=== PATIENT | female | born 1950 | race Caucasian/White ===

== ENCOUNTER 2016-09-01 15:37 | Emergency (ER) | payer MEDICARE, OTHER ==
[~2016-09-01] VITALS: Ht 160 cm; Wt 77.1 kg
[2016-09-01 15:37] VITALS: BP 175/99
[2016-09-01] MEDS ORDERED: TDAP [DIPH/PERTUSSIS/TET] 0.5 ML VIAL IM ONE ×2 (17:21→18:00)
== END 2016-09-01 17:47 | disposition home or self-care (01) ==
LOC: ER 15:38
DX: S80.02XA Contusion of left knee, initial encounter (principal); G40.909 Epilepsy, unspecified, not intractable, without status epilepticus; I10 Essential (primary) hypertension; M19.90 Unspecified osteoarthritis, unspecified site; Z96.652 Presence of left artificial knee joint; W18.30XA Fall on same level, unspecified, initial encounter; Y93.89 Activity, other specified; Y92.89 Other specified places as the place of occurrence of the external cause; Y99.8 Other external cause status
CPT/HCPCS: 73564; 90471; 90715; 99284; A4606; Z7610

== ENCOUNTER 2019-12-28 14:54 | Outpatient (CLI) | payer MEDICARE, OTHER ==
[2019-12-28 18:43] LABS: BASOPHILS % (AUTO) 0.3 % (0.0-2.0); EOSINOPHILS % (AUTO) 1.4 % (0.0-6.0); HEMATOCRIT 43 % (33-45); HEMOGLOBIN 14.4 g/dL (11.5-14.8); LYMPHOCYTES # (AUTO) 2.6 /CMM (0.8-4.8); MEAN CORPUSCULAR HGB CONC 34 g/dl (31.0-36.0); MEAN CORPUSCULAR VOLUME 88 fL (82-100); MONOCYTES # (AUTO) 0.7 /CMM (0.1-1.30); MONOCYTES % (AUTO) 8.9 % (2.0-12.0); NEUTROPHILS # (AUTO) 4.8 /CMM (1.8-8.9); NEUTROPHILS % (AUTO) 58.4 % (43.0-81.0); PLATELET COUNT (AUTO) 193 /CMM (150-450); RED BLOOD CELL COUNT(AUTO) 4.88 MIL/uL (4.0-5.2); WHITE BLOOD COUNT (AUTO) 8.2 K/uL (4.3-11.0)
[2019-12-28 18:50] LABS: ALBUMIN 3.6 g/dL (3.4-5.0); BILIRUBIN,TOTAL 0.1 mg/dL (0.2-1.0); CREATININE 0.7 mg/dL (0.6-1.3); POTASSIUM 3.7 mmol/L (3.5-5.1); TOTAL PROTEIN, SERUM 7.6 g/dL (6.4-8.2)
[2019-12-28 18:53] LABS: CARBAMAZEPINE (TEGRETOL) 6.8 ug/ml (4-11.9)
[2019-12-28 19:11] LABS: THYROID STIMULATING HORMONE 1.046 uIU/mL (0.358-3.74)
== END 2019-12-28 23:59 | disposition home or self-care (01) ==
LOC: MSC 14:54
PROVIDERS: ATTEND Internal Medicine
DX: I10 Essential (primary) hypertension (principal); M65.279 Calcific tendinitis, unspecified ankle and foot; F41.9 Anxiety disorder, unspecified; K62.5 Hemorrhage of anus and rectum; G40.309 Generalized idiopathic epilepsy and epileptic syndromes, not intractable, without status epilepticus; N39.0 Urinary tract infection, site not specified; M54.5 Low back pain; M15.9 Polyosteoarthritis, unspecified; E66.9 Obesity, unspecified; M85.80 Other specified disorders of bone density and structure, unspecified site; E78.5 Hyperlipidemia, unspecified; Z79.899 Other long term (current) drug therapy
CPT/HCPCS: 36415; 80053; 80156; 83735; 84100; 84443; 85025; G0463

== ENCOUNTER 2020-02-29 14:42 | Outpatient (CLI) | payer MEDICARE, OTHER | END 2020-02-29 23:59 | disposition home or self-care (01) | LOC: MSC 14:42 | PROVIDERS: ATTEND Internal Medicine | DX: M65.279 Calcific tendinitis, unspecified ankle and foot (principal); F41.9 Anxiety disorder, unspecified; I10 Essential (primary) hypertension; M15.9 Polyosteoarthritis, unspecified; M54.5 Low back pain; K62.5 Hemorrhage of anus and rectum; E66.9 Obesity, unspecified; Z68.33 Body mass index [BMI] 33.0-33.9, adult; E78.5 Hyperlipidemia, unspecified; E74.39 Other disorders of intestinal carbohydrate absorption; G40.309 Generalized idiopathic epilepsy and epileptic syndromes, not intractable, without status epilepticus; N39.0 Urinary tract infection, site not specified; M85.80 Other specified disorders of bone density and structure, unspecified site; Z79.899 Other long term (current) drug therapy ==

== ENCOUNTER 2020-06-13 14:54 | Outpatient (CLI) | payer MEDICARE, OTHER | END 2020-06-13 23:59 | disposition home or self-care (01) | LOC: MSC 14:54 | PROVIDERS: ATTEND Internal Medicine | DX: I10 Essential (primary) hypertension (principal); M65.279 Calcific tendinitis, unspecified ankle and foot; K62.5 Hemorrhage of anus and rectum; F41.9 Anxiety disorder, unspecified; M15.9 Polyosteoarthritis, unspecified; M54.5 Low back pain; E66.9 Obesity, unspecified; Z68.34 Body mass index [BMI] 34.0-34.9, adult; Z71.3 Dietary counseling and surveillance; E78.5 Hyperlipidemia, unspecified; E74.39 Other disorders of intestinal carbohydrate absorption; G40.309 Generalized idiopathic epilepsy and epileptic syndromes, not intractable, without status epilepticus; N39.0 Urinary tract infection, site not specified; M85.80 Other specified disorders of bone density and structure, unspecified site; Z79.899 Other long term (current) drug therapy; Z71.89 Other specified counseling ==

== ENCOUNTER 2020-08-08 14:42 | Outpatient (CLI) | payer MEDICARE, OTHER | END 2020-08-08 23:59 | disposition home or self-care (01) | LOC: MSC 14:42 | PROVIDERS: ATTEND Internal Medicine | DX: I10 Essential (primary) hypertension (principal); F41.9 Anxiety disorder, unspecified; G40.309 Generalized idiopathic epilepsy and epileptic syndromes, not intractable, without status epilepticus; M15.9 Polyosteoarthritis, unspecified; M54.5 Low back pain; K62.5 Hemorrhage of anus and rectum; E66.9 Obesity, unspecified; Z68.35 Body mass index [BMI] 35.0-35.9, adult; Z71.3 Dietary counseling and surveillance; M65.279 Calcific tendinitis, unspecified ankle and foot; E78.5 Hyperlipidemia, unspecified; E74.39 Other disorders of intestinal carbohydrate absorption; N39.0 Urinary tract infection, site not specified; M85.80 Other specified disorders of bone density and structure, unspecified site; Z79.899 Other long term (current) drug therapy ==

== ENCOUNTER 2020-11-18 09:35 | Outpatient (CLI) | payer MEDICARE, OTHER | END 2020-11-18 23:59 | disposition home or self-care (01) | LOC: MSC 09:35 | PROVIDERS: ATTEND Internal Medicine | DX: E66.9 Obesity, unspecified (principal); Z68.36 Body mass index [BMI] 36.0-36.9, adult; Z71.3 Dietary counseling and surveillance; I10 Essential (primary) hypertension; Z96.653 Presence of artificial knee joint, bilateral; M65.279 Calcific tendinitis, unspecified ankle and foot; M85.80 Other specified disorders of bone density and structure, unspecified site; F41.9 Anxiety disorder, unspecified; M15.9 Polyosteoarthritis, unspecified; M54.5 Low back pain; E78.5 Hyperlipidemia, unspecified; E74.39 Other disorders of intestinal carbohydrate absorption; G40.309 Generalized idiopathic epilepsy and epileptic syndromes, not intractable, without status epilepticus; Z86.69 Personal history of other diseases of the nervous system and sense organs; Z98.890 Other specified postprocedural states; Z87.440 Personal history of urinary (tract) infections; Z79.899 Other long term (current) drug therapy ==

== ENCOUNTER 2021-01-20 09:49 | Outpatient (CLI) | payer MEDICARE, OTHER | END 2021-01-20 23:59 | disposition home or self-care (01) | LOC: MSC 09:49 | PROVIDERS: ATTEND Internal Medicine | DX: I10 Essential (primary) hypertension (principal); Z68.36 Body mass index [BMI] 36.0-36.9, adult; Z71.3 Dietary counseling and surveillance; M85.80 Other specified disorders of bone density and structure, unspecified site; M65.279 Calcific tendinitis, unspecified ankle and foot; F41.9 Anxiety disorder, unspecified; M15.9 Polyosteoarthritis, unspecified; K62.5 Hemorrhage of anus and rectum; M54.50 Low back pain, unspecified; E66.9 Obesity, unspecified; E78.5 Hyperlipidemia, unspecified; E74.39 Other disorders of intestinal carbohydrate absorption; G40.309 Generalized idiopathic epilepsy and epileptic syndromes, not intractable, without status epilepticus; Z87.440 Personal history of urinary (tract) infections; Z79.899 Other long term (current) drug therapy ==

== ENCOUNTER 2021-01-22 10:10 | Outpatient (CLI) | payer MEDICARE, OTHER ==
[2021-01-22] MEDS ORDERED: LIDOCAINE SOLN 4% 50 ML BOTTLE ONE (10:45)
== END 2021-01-22 23:59 | disposition home or self-care (01) ==
LOC: WOU 10:10
PROVIDERS: ATTEND Podiatrist Foot & Ankle Surgery
DX: T81.31XA Disruption of external operation (surgical) wound, not elsewhere classified, initial encounter (principal); I10 Essential (primary) hypertension
CPT/HCPCS: 11042

== ENCOUNTER 2021-02-05 10:02 | Outpatient (CLI) | payer MEDICARE, OTHER ==
[2021-02-05] MEDS ORDERED: LIDOCAINE SOLN 4% 50 ML BOTTLE ONE (10:10)
== END 2021-02-05 23:59 | disposition home health service (06) ==
LOC: WOU 10:02
PROVIDERS: ATTEND Podiatrist Foot & Ankle Surgery
DX: T81.31XA Disruption of external operation (surgical) wound, not elsewhere classified, initial encounter (principal); I10 Essential (primary) hypertension; Z96.653 Presence of artificial knee joint, bilateral
CPT/HCPCS: 11042

== ENCOUNTER 2021-02-12 09:50 | Outpatient (CLI) | payer MEDICARE, OTHER ==
[2021-02-12] MEDS ORDERED: CLOTRIMAZOLE 1% 15 GM TUBE TP ONE (11:06)
[2021-02-12] MEDS ORDERED: TRIAMCINOLONE ACETONIDE 0.1% CR 15 GM TUBE TP ONE (11:06)
== END 2021-02-12 23:59 | disposition home health service (06) ==
LOC: WOU 09:50
PROVIDERS: ATTEND Podiatrist Foot & Ankle Surgery
DX: T81.31XA Disruption of external operation (surgical) wound, not elsewhere classified, initial encounter (principal); I10 Essential (primary) hypertension
CPT/HCPCS: 11042

== ENCOUNTER 2021-02-17 10:30 | Outpatient (CLI) | payer MEDICARE, OTHER | END 2021-02-17 23:59 | disposition home or self-care (01) | LOC: MSC 10:30 | PROVIDERS: ATTEND Internal Medicine | DX: E66.9 Obesity, unspecified (principal); Z71.3 Dietary counseling and surveillance; I10 Essential (primary) hypertension; M65.279 Calcific tendinitis, unspecified ankle and foot; F41.9 Anxiety disorder, unspecified; M15.9 Polyosteoarthritis, unspecified; M54.50 Low back pain, unspecified; K62.5 Hemorrhage of anus and rectum; E78.5 Hyperlipidemia, unspecified; E74.39 Other disorders of intestinal carbohydrate absorption; G40.309 Generalized idiopathic epilepsy and epileptic syndromes, not intractable, without status epilepticus; Z87.440 Personal history of urinary (tract) infections; M85.80 Other specified disorders of bone density and structure, unspecified site; Z79.899 Other long term (current) drug therapy ==

== ENCOUNTER → 2021-02-18 | Outpatient (CLI) | payer MEDICARE, OTHER ==
[~2021-02-18] MED LIST: CLOTRIMAZOLE 1% 15 GM TUBE TP ONE
== END | disposition home or self-care (01) ==
LOC: VASLAB 09:00
PROVIDERS: ATTEND Internal Medicine
DX: T81.30XD Disruption of wound, unspecified, subsequent encounter (principal); S91.301D Unspecified open wound, right foot, subsequent encounter; X58.XXXD Exposure to other specified factors, subsequent encounter; I87.2 Venous insufficiency (chronic) (peripheral); G40.909 Epilepsy, unspecified, not intractable, without status epilepticus; E78.5 Hyperlipidemia, unspecified; I10 Essential (primary) hypertension; R06.00 Dyspnea, unspecified
CPT/HCPCS: G0463

== ENCOUNTER 2021-02-19 09:50 | Outpatient (CLI) | payer MEDICARE, OTHER ==
[~2021-02-19 09:50] MED LIST changes: -CLOTRIMAZOLE 1% 15 GM TUBE TP ONE; +LIDOCAINE SOLN 4% 50 ML BOTTLE ONE
== END 2021-02-19 23:59 | disposition home health service (06) ==
LOC: WOU 09:50
PROVIDERS: ATTEND Podiatrist Foot & Ankle Surgery
DX: T81.31XA Disruption of external operation (surgical) wound, not elsewhere classified, initial encounter (principal); I10 Essential (primary) hypertension; F41.9 Anxiety disorder, unspecified
CPT/HCPCS: 11042

== ENCOUNTER 2021-02-24 11:30 | Outpatient (CLI) | payer MEDICARE, OTHER ==
[2021-02-24] MEDS ORDERED: GADOTERATE MEGLUMINE 10 MMOL/20 ML VIAL IV ONE (11:31)
== END 2021-02-24 23:59 | disposition home or self-care (01) ==
LOC: MRI 11:30
PROVIDERS: ATTEND Podiatrist Foot & Ankle Surgery
DX: S91.301A Unspecified open wound, right foot, initial encounter (principal); M19.071 Primary osteoarthritis, right ankle and foot; M20.11 Hallux valgus (acquired), right foot; M76.61 Achilles tendinitis, right leg; X58.XXXA Exposure to other specified factors, initial encounter; Y93.89 Activity, other specified; Y92.89 Other specified places as the place of occurrence of the external cause; Y99.8 Other external cause status
CPT/HCPCS: 73720; 73723; A9575

== ENCOUNTER 2021-02-26 10:06 | Outpatient (CLI) | payer MEDICARE, OTHER ==
[2021-02-26] MEDS ORDERED: LIDOCAINE SOLN 4% 50 ML BOTTLE ONE (10:21)
[2021-02-26] MEDS ORDERED: CLOTRIMAZOLE 1% 15 GM TUBE TP ONE (10:48)
[2021-02-26] MEDS ORDERED: TRIAMCINOLONE ACETONIDE 0.1% CR 15 GM TUBE TP ONE (10:48)
== END 2021-02-26 23:59 | disposition home health service (06) ==
LOC: WOU 10:06
PROVIDERS: ATTEND Podiatrist Foot & Ankle Surgery
DX: T81.31XA Disruption of external operation (surgical) wound, not elsewhere classified, initial encounter (principal); I10 Essential (primary) hypertension; F41.9 Anxiety disorder, unspecified
CPT/HCPCS: 11042

== ENCOUNTER 2021-03-03 09:49 | Outpatient (CLI) | payer MEDICARE, OTHER | END 2021-03-03 23:59 | disposition home or self-care (01) | LOC: MSC 09:49 | PROVIDERS: ATTEND Internal Medicine | DX: E66.9 Obesity, unspecified (principal); Z71.3 Dietary counseling and surveillance; I10 Essential (primary) hypertension; M65.279 Calcific tendinitis, unspecified ankle and foot; F41.9 Anxiety disorder, unspecified; M15.9 Polyosteoarthritis, unspecified; M54.50 Low back pain, unspecified; K62.5 Hemorrhage of anus and rectum; E78.5 Hyperlipidemia, unspecified; E74.39 Other disorders of intestinal carbohydrate absorption; G40.309 Generalized idiopathic epilepsy and epileptic syndromes, not intractable, without status epilepticus; N39.0 Urinary tract infection, site not specified; M85.80 Other specified disorders of bone density and structure, unspecified site; Z79.899 Other long term (current) drug therapy ==

== ENCOUNTER 2021-03-05 09:50 | Outpatient (CLI) | payer MEDICARE, OTHER ==
[2021-03-05] MEDS ORDERED: LIDOCAINE SOLN 4% 50 ML BOTTLE ONE (10:10)
[2021-03-05] MEDS ORDERED: CLOTRIMAZOLE 1% 15 GM TUBE TP ONE (10:28)
[2021-03-05] MEDS ORDERED: TRIAMCINOLONE ACETONIDE 0.1% CR 15 GM TUBE TP ONE (10:28)
== END 2021-03-05 23:59 | disposition home health service (06) ==
LOC: WOU 09:50
PROVIDERS: ATTEND Podiatrist Foot & Ankle Surgery
DX: T81.31XS Disruption of external operation (surgical) wound, not elsewhere classified, sequela (principal); L97.312 Non-pressure chronic ulcer of right ankle with fat layer exposed
CPT/HCPCS: 11042

== ENCOUNTER 2021-03-19 09:50 | Outpatient (CLI) | payer MEDICARE, OTHER | END 2021-03-19 23:59 | disposition home health service (06) | LOC: WOU 09:50 | PROVIDERS: ATTEND Podiatrist Foot & Ankle Surgery | DX: T81.31XS Disruption of external operation (surgical) wound, not elsewhere classified, sequela (principal); L97.312 Non-pressure chronic ulcer of right ankle with fat layer exposed | CPT/HCPCS: 11042; A6197 ==

== ENCOUNTER → 2021-03-26 | Outpatient (CLI) | payer MEDICARE, OTHER | END | disposition home health service (06) | LOC: WOU 10:05 | PROVIDERS: ATTEND Podiatrist Foot & Ankle Surgery | DX: T81.31XS Disruption of external operation (surgical) wound, not elsewhere classified, sequela (principal); L97.312 Non-pressure chronic ulcer of right ankle with fat layer exposed; I10 Essential (primary) hypertension; Z96.653 Presence of artificial knee joint, bilateral | CPT/HCPCS: 11042 ==

== ENCOUNTER → 2021-03-31 | Outpatient (CLI) | payer MEDICARE, OTHER | END | disposition home or self-care (01) | LOC: MSC 09:06 | PROVIDERS: ATTEND Internal Medicine | DX: R48.8 Other symbolic dysfunctions (principal); E66.9 Obesity, unspecified; Z68.34 Body mass index [BMI] 34.0-34.9, adult; Z71.3 Dietary counseling and surveillance; I10 Essential (primary) hypertension; M65.279 Calcific tendinitis, unspecified ankle and foot; F41.9 Anxiety disorder, unspecified; M15.9 Polyosteoarthritis, unspecified; M54.50 Low back pain, unspecified; K62.5 Hemorrhage of anus and rectum; E78.5 Hyperlipidemia, unspecified; E74.39 Other disorders of intestinal carbohydrate absorption; G40.309 Generalized idiopathic epilepsy and epileptic syndromes, not intractable, without status epilepticus; N39.0 Urinary tract infection, site not specified; M85.80 Other specified disorders of bone density and structure, unspecified site; Z79.899 Other long term (current) drug therapy ==

== ENCOUNTER 2021-04-02 10:10 | Outpatient (CLI) | payer MEDICARE, OTHER | END 2021-04-02 23:59 | disposition home health service (06) | LOC: WOU 10:10 | PROVIDERS: ATTEND Podiatrist Foot & Ankle Surgery | DX: T81.31XS Disruption of external operation (surgical) wound, not elsewhere classified, sequela (principal); L97.315 Non-pressure chronic ulcer of right ankle with muscle involvement without evidence of necrosis; I10 Essential (primary) hypertension | CPT/HCPCS: 11043; A6210 ==

== ENCOUNTER 2021-04-06 09:36 | Outpatient (CLI) | payer MEDICARE, OTHER ==
[2021-04-06 10:33] LABS: BASOPHILS % (AUTO) 0.5 % (0.0-2.0); EOSINOPHILS % (AUTO) 1.1 % (0.0-6.0); HEMATOCRIT 42 % (33-45); HEMOGLOBIN 14.4 g/dL (11.5-14.8); LYMPHOCYTES # (AUTO) 2.1 K/uL (0.8-4.8); LYMPHOCYTES % (AUTO) 28.9 % (20.0-44.0); MEAN CORPUSCULAR HGB CONC 34 g/dl (31.0-36.0); MEAN CORPUSCULAR VOLUME 85 fL (82-100); MONOCYTES # (AUTO) 0.6 K/uL (0.1-1.30); MONOCYTES % (AUTO) 7.6 % (2.0-12.0); NEUTROPHILS # (AUTO) 4.6 K/uL (1.8-8.9); NEUTROPHILS % (AUTO) 61.9 % (43.0-81.0); PLATELET COUNT (AUTO) 184 K/uL (150-450); RED BLOOD CELL COUNT(AUTO) 4.97 MIL/uL (4.0-5.2); WHITE BLOOD COUNT (AUTO) 7.4 K/uL (4.3-11.0)
[2021-04-06 11:14] LABS: ALBUMIN 3.4 g/dL (3.4-5.0); BILIRUBIN,TOTAL 0.5 mg/dL (0.2-1.0); CALCIUM, SERUM 8.8 mg/dL (8.5-10.1); CREATININE 0.9 mg/dL (0.6-1.3); MAGNESIUM 1.9 mg/dL (1.8-2.4); PHOSPHORUS 3.2 mg/dL (2.5-4.9); POTASSIUM 3.8 mmol/L (3.5-5.1); TOTAL PROTEIN, SERUM 7.1 g/dL (6.4-8.2)
[2021-04-06 11:36] LABS: C-REACTIVE PROTEIN 0.7 mg/dL (0.0-0.9); THYROID STIMULATING HORMONE 0.785 uIU/mL (0.358-3.74)
[2021-04-06 11:48] LABS: CARBAMAZEPINE (TEGRETOL) 4.5 ug/ml (4-11.9)
== END 2021-04-06 23:59 | disposition home or self-care (01) ==
LOC: LAB 09:36
PROVIDERS: ATTEND Internal Medicine
DX: I10 Essential (primary) hypertension (principal); E66.9 Obesity, unspecified
CPT/HCPCS: 36415; 80053-TC; 80156-TC; 82140-TC; 82607-TC; 83735-TC; 84100-TC; 84439-TC; 84443-TC; 85025-TC; 85652-TC; 86140-TC

== ENCOUNTER 2021-04-09 10:10 | Outpatient (CLI) | payer MEDICARE, OTHER | END 2021-04-09 23:59 | disposition home health service (06) | LOC: WOU 10:10 | PROVIDERS: ATTEND Podiatrist Foot & Ankle Surgery | DX: T81.31XS Disruption of external operation (surgical) wound, not elsewhere classified, sequela (principal); L97.312 Non-pressure chronic ulcer of right ankle with fat layer exposed | CPT/HCPCS: 11042 ==

== ENCOUNTER 2021-04-09 11:45 | Outpatient (CLI) | payer MEDICARE, OTHER | END 2021-04-09 23:59 | disposition home or self-care (01) | LOC: MSC 11:45 | PROVIDERS: ATTEND Internal Medicine | DX: Z51.89 Encounter for other specified aftercare (principal); E66.9 Obesity, unspecified; I10 Essential (primary) hypertension; F41.9 Anxiety disorder, unspecified; M65.279 Calcific tendinitis, unspecified ankle and foot; M15.9 Polyosteoarthritis, unspecified; M54.50 Low back pain, unspecified; K62.5 Hemorrhage of anus and rectum; E78.5 Hyperlipidemia, unspecified; E74.39 Other disorders of intestinal carbohydrate absorption; G40.309 Generalized idiopathic epilepsy and epileptic syndromes, not intractable, without status epilepticus; N39.0 Urinary tract infection, site not specified; M85.80 Other specified disorders of bone density and structure, unspecified site; Z79.899 Other long term (current) drug therapy ==

== ENCOUNTER 2021-04-16 10:00 | Outpatient (CLI) | payer MEDICARE, OTHER | END 2021-04-16 23:59 | disposition home health service (06) | LOC: WOU 10:00 | PROVIDERS: ATTEND Podiatrist Foot & Ankle Surgery | DX: T81.31XS Disruption of external operation (surgical) wound, not elsewhere classified, sequela (principal); L97.312 Non-pressure chronic ulcer of right ankle with fat layer exposed; I10 Essential (primary) hypertension | CPT/HCPCS: 11042 ==

== ENCOUNTER 2021-04-23 09:50 | Outpatient (CLI) | payer MEDICARE, OTHER ==
[~2021-04-23 09:50] MED LIST changes: +LIDOCAINE 2% JEL 5 ML TUBE ONE; -LIDOCAINE SOLN 4% 50 ML BOTTLE ONE
== END 2021-04-23 23:59 | disposition home health service (06) ==
LOC: WOU 09:50
PROVIDERS: ATTEND Podiatrist Foot & Ankle Surgery
DX: T81.31XS Disruption of external operation (surgical) wound, not elsewhere classified, sequela (principal); L97.312 Non-pressure chronic ulcer of right ankle with fat layer exposed; I10 Essential (primary) hypertension
CPT/HCPCS: 11042

== ENCOUNTER 2021-04-30 09:50 | Outpatient (CLI) | payer MEDICARE, OTHER | END 2021-04-30 23:59 | disposition home health service (06) | LOC: WOU 09:50 | PROVIDERS: ATTEND Podiatrist Foot & Ankle Surgery | DX: T81.31XS Disruption of external operation (surgical) wound, not elsewhere classified, sequela (principal); L97.312 Non-pressure chronic ulcer of right ankle with fat layer exposed; I10 Essential (primary) hypertension | CPT/HCPCS: 15271; Q4196 ==

== ENCOUNTER 2021-05-07 10:00 | Outpatient (CLI) | payer MEDICARE, OTHER ==
[2021-05-07] MEDS ORDERED: HYDROCORTISONE 1% CREAM 28.35 GM TUBE TP ONE (10:37)
== END 2021-05-07 23:59 | disposition home health service (06) ==
LOC: WOU 10:00
PROVIDERS: ATTEND Podiatrist Foot & Ankle Surgery
DX: T81.31XS Disruption of external operation (surgical) wound, not elsewhere classified, sequela (principal); L97.312 Non-pressure chronic ulcer of right ankle with fat layer exposed; I10 Essential (primary) hypertension
CPT/HCPCS: 11042

== ENCOUNTER 2021-05-12 10:10 | Outpatient (CLI) | payer MEDICARE, OTHER | END 2021-05-12 23:59 | disposition home or self-care (01) | LOC: MSC 10:10 | PROVIDERS: ATTEND Internal Medicine | DX: E66.9 Obesity, unspecified (principal); Z68.34 Body mass index [BMI] 34.0-34.9, adult; Z71.3 Dietary counseling and surveillance; Z79.84 Long term (current) use of oral hypoglycemic drugs; I10 Essential (primary) hypertension; M65.279 Calcific tendinitis, unspecified ankle and foot; F41.9 Anxiety disorder, unspecified; M15.9 Polyosteoarthritis, unspecified; M54.50 Low back pain, unspecified; K62.5 Hemorrhage of anus and rectum; E78.5 Hyperlipidemia, unspecified; E74.39 Other disorders of intestinal carbohydrate absorption; G40.309 Generalized idiopathic epilepsy and epileptic syndromes, not intractable, without status epilepticus; N39.0 Urinary tract infection, site not specified; M85.80 Other specified disorders of bone density and structure, unspecified site; Z79.899 Other long term (current) drug therapy ==

== ENCOUNTER 2021-05-21 09:45 | Outpatient (CLI) | payer MEDICARE, OTHER ==
[2021-05-21] MEDS ORDERED: HYDROCORTISONE 1% CREAM 28.35 GM TUBE TP ONE (10:36)
== END 2021-05-21 23:59 | disposition home health service (06) ==
LOC: WOU 09:45
PROVIDERS: ATTEND Podiatrist Foot & Ankle Surgery
DX: L97.312 Non-pressure chronic ulcer of right ankle with fat layer exposed (principal); T81.31XS Disruption of external operation (surgical) wound, not elsewhere classified, sequela; I10 Essential (primary) hypertension
CPT/HCPCS: 15271; Q4133 ×2

== ENCOUNTER 2021-05-28 09:55 | Outpatient (CLI) | payer MEDICARE, OTHER | END 2021-05-28 23:59 | disposition home health service (06) | LOC: WOU 09:55 | PROVIDERS: ATTEND Podiatrist Foot & Ankle Surgery | DX: L97.312 Non-pressure chronic ulcer of right ankle with fat layer exposed (principal); T81.31XS Disruption of external operation (surgical) wound, not elsewhere classified, sequela | CPT/HCPCS: 11042; A6197 ==

== ENCOUNTER 2021-06-04 09:55 | Outpatient (CLI) | payer MEDICARE, OTHER ==
[2021-06-04] MEDS ORDERED: LIDOCAINE SOLN 4% 50 ML BOTTLE ONE (10:14)
== END 2021-06-04 23:59 | disposition home health service (06) ==
LOC: WOU 09:55
PROVIDERS: ATTEND Podiatrist Foot & Ankle Surgery
DX: L97.312 Non-pressure chronic ulcer of right ankle with fat layer exposed (principal); T81.31XS Disruption of external operation (surgical) wound, not elsewhere classified, sequela
CPT/HCPCS: 15271; Q4158 ×2

== ENCOUNTER 2021-06-09 10:00 | Outpatient (CLI) | payer MEDICARE, OTHER | END 2021-06-09 23:59 | disposition home or self-care (01) | LOC: MSC 10:00 | PROVIDERS: ATTEND Internal Medicine | DX: K21.9 Gastro-esophageal reflux disease without esophagitis (principal); E66.9 Obesity, unspecified; Z71.3 Dietary counseling and surveillance; I10 Essential (primary) hypertension; M65.279 Calcific tendinitis, unspecified ankle and foot; F41.9 Anxiety disorder, unspecified; M15.9 Polyosteoarthritis, unspecified; M54.50 Low back pain, unspecified; K62.5 Hemorrhage of anus and rectum; E78.5 Hyperlipidemia, unspecified; E74.39 Other disorders of intestinal carbohydrate absorption; G40.309 Generalized idiopathic epilepsy and epileptic syndromes, not intractable, without status epilepticus; Z87.440 Personal history of urinary (tract) infections; M85.80 Other specified disorders of bone density and structure, unspecified site ==

== ENCOUNTER → 2021-06-11 | Outpatient (CLI) | payer MEDICARE, OTHER ==
[~2021-06-11] MED LIST changes: +HYDROCORTISONE 1% CREAM 28.35 GM TUBE TP ONE; -LIDOCAINE 2% JEL 5 ML TUBE ONE; +LIDOCAINE SOLN 4% 50 ML BOTTLE ONE
== END | disposition home health service (06) ==
LOC: WOU 10:00
PROVIDERS: ATTEND Podiatrist Foot & Ankle Surgery
DX: L97.312 Non-pressure chronic ulcer of right ankle with fat layer exposed (principal); T81.31XS Disruption of external operation (surgical) wound, not elsewhere classified, sequela; I10 Essential (primary) hypertension
CPT/HCPCS: 11042; A6197

== ENCOUNTER 2021-06-18 09:50 | Outpatient (CLI) | payer MEDICARE, OTHER | END 2021-06-18 23:59 | disposition home health service (06) | LOC: WOU 09:50 | PROVIDERS: ATTEND Podiatrist Foot & Ankle Surgery | DX: L97.312 Non-pressure chronic ulcer of right ankle with fat layer exposed (principal); T81.31XS Disruption of external operation (surgical) wound, not elsewhere classified, sequela; I10 Essential (primary) hypertension | CPT/HCPCS: 11042; A6197 ==

== ENCOUNTER 2021-06-25 09:50 | Outpatient (CLI) | payer MEDICARE, OTHER ==
[2021-06-25] MEDS ORDERED: UREA 10% -AHA 4% CREAM 57 GM TUBE ONE (10:36)
== END 2021-06-25 23:59 | disposition home health service (06) ==
LOC: WOU 09:50
PROVIDERS: ATTEND Podiatrist Foot & Ankle Surgery
DX: L97.312 Non-pressure chronic ulcer of right ankle with fat layer exposed (principal); T81.31XS Disruption of external operation (surgical) wound, not elsewhere classified, sequela; I10 Essential (primary) hypertension
CPT/HCPCS: 11042

== ENCOUNTER 2021-07-02 09:50 | Outpatient (CLI) | payer MEDICARE, OTHER ==
[2021-07-02] MEDS ORDERED: LIDOCAINE 2% JEL 5 ML TUBE ONE (09:56)
== END 2021-07-02 23:59 | disposition home health service (06) ==
LOC: WOU 09:50
PROVIDERS: ATTEND Podiatrist Foot & Ankle Surgery
DX: L97.312 Non-pressure chronic ulcer of right ankle with fat layer exposed (principal); T81.31XS Disruption of external operation (surgical) wound, not elsewhere classified, sequela
CPT/HCPCS: 11042

== ENCOUNTER → 2021-07-07 | Outpatient (CLI) | payer MEDICARE, OTHER | END | disposition home or self-care (01) | LOC: MSC 14:30 | PROVIDERS: ATTEND Internal Medicine | DX: Z51.89 Encounter for other specified aftercare (principal); K21.9 Gastro-esophageal reflux disease without esophagitis; E66.9 Obesity, unspecified; Z71.3 Dietary counseling and surveillance; Z79.899 Other long term (current) drug therapy; M65.279 Calcific tendinitis, unspecified ankle and foot; I10 Essential (primary) hypertension; F41.9 Anxiety disorder, unspecified; M15.9 Polyosteoarthritis, unspecified; M54.50 Low back pain, unspecified; K62.5 Hemorrhage of anus and rectum; E78.5 Hyperlipidemia, unspecified; E74.39 Other disorders of intestinal carbohydrate absorption; G40.309 Generalized idiopathic epilepsy and epileptic syndromes, not intractable, without status epilepticus; Z87.440 Personal history of urinary (tract) infections; M85.80 Other specified disorders of bone density and structure, unspecified site ==

== ENCOUNTER 2021-07-09 10:00 | Outpatient (CLI) | payer MEDICARE, OTHER ==
[2021-07-09] MEDS ORDERED: LIDOCAINE 2% JEL 5 ML TUBE ONE (10:11)
== END 2021-07-09 23:59 | disposition home health service (06) ==
LOC: WOU 10:00
PROVIDERS: ATTEND Podiatrist Foot & Ankle Surgery
DX: L97.312 Non-pressure chronic ulcer of right ankle with fat layer exposed (principal); T81.31XS Disruption of external operation (surgical) wound, not elsewhere classified, sequela; Z96.653 Presence of artificial knee joint, bilateral
CPT/HCPCS: 11042; A6197

== ENCOUNTER → 2021-07-16 | Outpatient (CLI) | payer MEDICARE, OTHER | END | disposition home health service (06) | LOC: WOU 09:50 | PROVIDERS: ATTEND Podiatrist Foot & Ankle Surgery | DX: L97.312 Non-pressure chronic ulcer of right ankle with fat layer exposed (principal); T81.31XS Disruption of external operation (surgical) wound, not elsewhere classified, sequela; Z96.653 Presence of artificial knee joint, bilateral | CPT/HCPCS: 11042; A6197 ==

== ENCOUNTER 2021-07-23 10:10 | Outpatient (CLI) | payer MEDICARE, OTHER ==
[~2021-07-23 10:10] MED LIST changes: -HYDROCORTISONE 1% CREAM 28.35 GM TUBE TP ONE; +LIDOCAINE 2% JEL 5 ML TUBE ONE; -LIDOCAINE SOLN 4% 50 ML BOTTLE ONE
[2021-07-23] MEDS ORDERED: LIDOCAINE HCL/MPF 1% 30 ML VIAL IJ ONE (10:40)
== END 2021-07-23 23:59 | disposition home health service (06) ==
LOC: WOU 10:10
PROVIDERS: ATTEND Podiatrist Foot & Ankle Surgery
DX: L97.312 Non-pressure chronic ulcer of right ankle with fat layer exposed (principal); T81.31XS Disruption of external operation (surgical) wound, not elsewhere classified, sequela; I10 Essential (primary) hypertension; Z96.653 Presence of artificial knee joint, bilateral
CPT/HCPCS: 13160; J3490

== ENCOUNTER 2021-07-29 14:26 | Emergency (ER) | payer MEDICARE, OTHER ==
[~2021-07-29] VITALS: Ht 160 cm; Wt 86.9 kg
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
--- NOTE | 2021-07-29 15:22 | NUR ---
WHEELED OUT VIA [facility] FOR CT SCAN
[2021-07-29] MEDS ORDERED: CYCLOBENZAPRINE 10 MG TABLET PO ONE (15:30)
[2021-07-29] MEDS ORDERED: KETOROLAC TROMETHAMINE INJ 30 MG/ML VIAL IM ONE (15:30)
[2021-07-29] MEDS ORDERED: CYCLOBENZAPRINE 10 MG TABLET ONE (15:35)
[2021-07-29] MEDS ORDERED: KETOROLAC TROMETHAMINE INJ 30 MG/ML VIAL ONE (15:35)
[2021-07-29] MEDS ORDERED: CYCL5TAB PO ×2 (16:52→18:07)
[2021-07-29] MEDS ORDERED: IBUP-1957 PO ×2 (16:52→18:07)
--- NOTE | 2021-07-29 17:12 | NUR ---
Patient discharged to home in stable condition. Written and verbal after care instructions given. Patient verbalizes understanding of instruction.
[2021-07-29 17:13] VITALS: BP 136/83
== END 2021-07-29 17:13 | disposition home or self-care (01) ==
LOC: ER 14:29
DX: S13.9XXA Sprain of joints and ligaments of unspecified parts of neck, initial encounter (principal); S39.012A Strain of muscle, fascia and tendon of lower back, initial encounter; I10 Essential (primary) hypertension; M19.90 Unspecified osteoarthritis, unspecified site; Z86.69 Personal history of other diseases of the nervous system and sense organs; Z96.652 Presence of left artificial knee joint; Z60.2 Problems related to living alone; Z79.1 Long term (current) use of non-steroidal anti-inflammatories (NSAID); Z79.899 Other long term (current) drug therapy; W10.0XXA Fall (on)(from) escalator, initial encounter; Y93.89 Activity, other specified; Y92.89 Other specified places as the place of occurrence of the external cause; Y99.8 Other external cause status
CPT/HCPCS: 70450; 72125; 72131; 96372; 99284; J1885

== ENCOUNTER 2021-07-30 10:00 | Outpatient (CLI) | payer MEDICARE, OTHER ==
[~2021-07-30 10:00] MED LIST changes: +CYCL5TAB PO; +IBUP-1957 PO; -LIDOCAINE 2% JEL 5 ML TUBE ONE
[2021-07-30] MEDS ORDERED: LIDOCAINE SOLN 4% 50 ML BOTTLE ONE (10:27)
[2021-07-30] MEDS ORDERED: HYDROCORTISONE 1% CREAM 28.35 GM TUBE TP ONE (10:43)
== END 2021-07-30 23:59 | disposition home health service (06) ==
LOC: WOU 10:00
PROVIDERS: ATTEND Podiatrist Foot & Ankle Surgery
DX: L97.312 Non-pressure chronic ulcer of right ankle with fat layer exposed (principal); T81.31XS Disruption of external operation (surgical) wound, not elsewhere classified, sequela
CPT/HCPCS: 11042

== ENCOUNTER 2021-08-06 10:04 | Outpatient (CLI) | payer MEDICARE, OTHER ==
[2021-08-06] MEDS ORDERED: LIDOCAINE 2% JEL 5 ML TUBE ONE (10:09)
[2021-08-06] MEDS ORDERED: HYDROCORTISONE 1% CREAM 28.35 GM TUBE TP ONE (11:01)
== END 2021-08-06 23:59 | disposition home health service (06) ==
LOC: WOU 10:04
PROVIDERS: ATTEND Podiatrist Foot & Ankle Surgery
DX: L97.312 Non-pressure chronic ulcer of right ankle with fat layer exposed (principal); T81.31XS Disruption of external operation (surgical) wound, not elsewhere classified, sequela; I10 Essential (primary) hypertension; Z96.653 Presence of artificial knee joint, bilateral
CPT/HCPCS: 11042

== ENCOUNTER 2021-08-11 10:05 | Outpatient (CLI) | payer MEDICARE, OTHER | END 2021-08-11 23:59 | disposition home or self-care (01) | LOC: MSC 10:05 | PROVIDERS: ATTEND Internal Medicine | DX: S39.012A Strain of muscle, fascia and tendon of lower back, initial encounter (principal); W10.0XXA Fall (on)(from) escalator, initial encounter; K21.9 Gastro-esophageal reflux disease without esophagitis; E66.9 Obesity, unspecified; Z68.33 Body mass index [BMI] 33.0-33.9, adult; Z71.3 Dietary counseling and surveillance; I10 Essential (primary) hypertension; M65.279 Calcific tendinitis, unspecified ankle and foot; F41.9 Anxiety disorder, unspecified; M15.9 Polyosteoarthritis, unspecified; E78.5 Hyperlipidemia, unspecified; E74.39 Other disorders of intestinal carbohydrate absorption; G40.309 Generalized idiopathic epilepsy and epileptic syndromes, not intractable, without status epilepticus; Z87.440 Personal history of urinary (tract) infections; M85.80 Other specified disorders of bone density and structure, unspecified site; Z79.899 Other long term (current) drug therapy ==

== ENCOUNTER 2021-08-13 09:50 | Outpatient (CLI) | payer MEDICARE, OTHER ==
[2021-08-13] MEDS ORDERED: HYDROCORTISONE 1% CREAM 28.35 GM TUBE TP ONE (10:27)
== END 2021-08-13 23:59 | disposition home health service (06) ==
LOC: WOU 09:50
PROVIDERS: ATTEND Podiatrist Foot & Ankle Surgery
DX: L97.312 Non-pressure chronic ulcer of right ankle with fat layer exposed (principal); T81.31XS Disruption of external operation (surgical) wound, not elsewhere classified, sequela; I10 Essential (primary) hypertension
CPT/HCPCS: 11042

== ENCOUNTER 2021-08-20 10:00 | Outpatient (CLI) | payer MEDICARE, OTHER ==
[2021-08-20] MEDS ORDERED: LIDOCAINE SOLN 4% 50 ML BOTTLE ONE (10:07)
== END 2021-08-20 23:59 | disposition home health service (06) ==
LOC: WOU 10:00
PROVIDERS: ATTEND Podiatrist Foot & Ankle Surgery
DX: L97.312 Non-pressure chronic ulcer of right ankle with fat layer exposed (principal); T81.31XS Disruption of external operation (surgical) wound, not elsewhere classified, sequela; I10 Essential (primary) hypertension; Z96.653 Presence of artificial knee joint, bilateral
CPT/HCPCS: 11042

== ENCOUNTER 2021-08-27 09:50 | Outpatient (CLI) | payer MEDICARE, OTHER ==
[2021-08-27] MEDS ORDERED: HYDROCORTISONE 1% CREAM 28.35 GM TUBE TP ONE (10:33)
== END 2021-08-27 23:59 | disposition home health service (06) ==
LOC: WOU 09:50
PROVIDERS: ATTEND Podiatrist Foot & Ankle Surgery
DX: L97.312 Non-pressure chronic ulcer of right ankle with fat layer exposed (principal); T81.31XS Disruption of external operation (surgical) wound, not elsewhere classified, sequela; I10 Essential (primary) hypertension
CPT/HCPCS: 11042; 87070-TC; 87075-TC

== ENCOUNTER 2021-09-03 09:50 | Outpatient (CLI) | payer MEDICARE, OTHER ==
[2021-09-03] MEDS ORDERED: MUPIROCIN 2% CREAM 15 GM TUBE TP ONE (11:22)
== END 2021-09-03 23:59 | disposition home health service (06) ==
LOC: WOU 09:50
PROVIDERS: ATTEND Podiatrist Foot & Ankle Surgery
DX: L97.315 Non-pressure chronic ulcer of right ankle with muscle involvement without evidence of necrosis (principal); T81.31XS Disruption of external operation (surgical) wound, not elsewhere classified, sequela; I10 Essential (primary) hypertension
CPT/HCPCS: 11043

== ENCOUNTER 2021-09-10 09:50 | Outpatient (CLI) | payer MEDICARE, OTHER ==
[2021-09-10] MEDS ORDERED: MUPIROCIN 2% CREAM 15 GM TUBE TP ONE (10:33)
[2021-09-10] MEDS ORDERED: HYDROCORTISONE 1% CREAM 28.35 GM TUBE TP ONE (10:34)
== END 2021-09-10 23:59 | disposition home health service (06) ==
LOC: WOU 09:50
PROVIDERS: ATTEND Podiatrist Foot & Ankle Surgery
DX: L97.315 Non-pressure chronic ulcer of right ankle with muscle involvement without evidence of necrosis (principal); T81.31XS Disruption of external operation (surgical) wound, not elsewhere classified, sequela
CPT/HCPCS: 11043

== ENCOUNTER → 2021-09-17 | Outpatient (CLI) | payer MEDICARE, OTHER ==
[~2021-09-17] MED LIST changes: +LIDOCAINE 2% 20 ML MDV ONE
== END | disposition home health service (06) ==
LOC: WOU 09:55
PROVIDERS: ATTEND Podiatrist Foot & Ankle Surgery
DX: L97.315 Non-pressure chronic ulcer of right ankle with muscle involvement without evidence of necrosis (principal); T81.31XS Disruption of external operation (surgical) wound, not elsewhere classified, sequela
CPT/HCPCS: 11043; J3490

== ENCOUNTER 2021-09-21 09:02 | Outpatient (CLI) | payer MEDICARE, OTHER ==
[~2021-09-21 09:02] MED LIST changes: -LIDOCAINE 2% 20 ML MDV ONE
[2021-09-21] MEDS ORDERED: LIDOCAINE SOLN 4% 50 ML BOTTLE ONE (09:09)
[2021-09-21] MEDS ORDERED: HYDROCORTISONE 1% CREAM 28.35 GM TUBE TP ONE (09:49)
== END 2021-09-21 23:59 | disposition home health service (06) ==
LOC: WOU 09:02
PROVIDERS: ATTEND Podiatrist Foot & Ankle Surgery
DX: L97.318 Non-pressure chronic ulcer of right ankle with other specified severity (principal); T81.31XS Disruption of external operation (surgical) wound, not elsewhere classified, sequela; I10 Essential (primary) hypertension
CPT/HCPCS: G0463

== ENCOUNTER 2021-09-24 10:00 | Outpatient (CLI) | payer MEDICARE, OTHER | END 2021-09-24 23:59 | disposition home health service (06) | LOC: WOU 10:00 | PROVIDERS: ATTEND Podiatrist Foot & Ankle Surgery | DX: L97.318 Non-pressure chronic ulcer of right ankle with other specified severity (principal); T81.31XS Disruption of external operation (surgical) wound, not elsewhere classified, sequela; I10 Essential (primary) hypertension | CPT/HCPCS: G0463 ==

== ENCOUNTER 2021-09-28 08:45 | Outpatient (CLI) | payer MEDICARE, OTHER | END 2021-09-28 23:59 | disposition home health service (06) | LOC: WOU 08:45 | PROVIDERS: ATTEND Podiatrist Foot & Ankle Surgery | DX: L97.318 Non-pressure chronic ulcer of right ankle with other specified severity (principal); T81.31XS Disruption of external operation (surgical) wound, not elsewhere classified, sequela; I10 Essential (primary) hypertension | CPT/HCPCS: G0463 ==

== ENCOUNTER 2021-10-08 09:30 | Outpatient (CLI) | payer MEDICARE, OTHER | END 2021-10-08 23:59 | disposition home health service (06) | LOC: WOU 09:30 | PROVIDERS: ATTEND Podiatrist Foot & Ankle Surgery | DX: L97.312 Non-pressure chronic ulcer of right ankle with fat layer exposed (principal); T81.31XS Disruption of external operation (surgical) wound, not elsewhere classified, sequela; I10 Essential (primary) hypertension | CPT/HCPCS: 11043 ==

== ENCOUNTER 2021-10-15 10:15 | Outpatient (CLI) | payer MEDICARE, OTHER ==
[2021-10-15] MEDS ORDERED: HYDROCORTISONE 1% CREAM 28.35 GM TUBE TP ONE (10:53)
== END 2021-10-15 23:59 | disposition home health service (06) ==
LOC: WOU 10:15
PROVIDERS: ATTEND Podiatrist Foot & Ankle Surgery
DX: L97.312 Non-pressure chronic ulcer of right ankle with fat layer exposed (principal); T81.31XS Disruption of external operation (surgical) wound, not elsewhere classified, sequela; I10 Essential (primary) hypertension
CPT/HCPCS: 11043

== ENCOUNTER 2021-10-22 10:00 | Outpatient (CLI) | payer MEDICARE, OTHER ==
[2021-10-22] MEDS ORDERED: HYDROCORTISONE 1% CREAM 28.35 GM TUBE TP ONE (10:59)
== END 2021-10-22 23:59 | disposition home health service (06) ==
LOC: WOU 10:00
PROVIDERS: ATTEND Podiatrist Foot & Ankle Surgery
DX: L97.315 Non-pressure chronic ulcer of right ankle with muscle involvement without evidence of necrosis (principal); T81.31XS Disruption of external operation (surgical) wound, not elsewhere classified, sequela; R26.2 Difficulty in walking, not elsewhere classified; Z96.653 Presence of artificial knee joint, bilateral
CPT/HCPCS: 11043

== ENCOUNTER 2021-10-27 09:35 | Outpatient (CLI) | payer MEDICARE, OTHER | END 2021-10-27 23:59 | disposition home or self-care (01) | LOC: MSC 09:35 | PROVIDERS: ATTEND Internal Medicine | DX: M65.271 Calcific tendinitis, right ankle and foot (principal); S91.301D Unspecified open wound, right foot, subsequent encounter; I10 Essential (primary) hypertension; E66.9 Obesity, unspecified; Z68.34 Body mass index [BMI] 34.0-34.9, adult; Z71.3 Dietary counseling and surveillance; G40.309 Generalized idiopathic epilepsy and epileptic syndromes, not intractable, without status epilepticus; K21.9 Gastro-esophageal reflux disease without esophagitis; F41.9 Anxiety disorder, unspecified; M15.9 Polyosteoarthritis, unspecified; M54.50 Low back pain, unspecified; K62.5 Hemorrhage of anus and rectum; E78.5 Hyperlipidemia, unspecified; E74.39 Other disorders of intestinal carbohydrate absorption; Z87.440 Personal history of urinary (tract) infections; M85.80 Other specified disorders of bone density and structure, unspecified site; Z79.899 Other long term (current) drug therapy ==

== ENCOUNTER 2021-10-28 08:30 | Outpatient (CLI) | payer MEDICARE, OTHER ==
[2021-10-28] MEDS ORDERED: HYDROCORTISONE 1% CREAM 28.35 GM TUBE TP ONE (08:41)
== END 2021-10-28 23:59 | disposition home health service (06) ==
LOC: WOU 08:30
PROVIDERS: ATTEND Specialist
DX: L97.312 Non-pressure chronic ulcer of right ankle with fat layer exposed (principal); T81.31XS Disruption of external operation (surgical) wound, not elsewhere classified, sequela; I10 Essential (primary) hypertension
CPT/HCPCS: G0463

== ENCOUNTER 2021-10-29 12:55 | Outpatient (CLI) | payer MEDICARE, OTHER ==
[2021-10-29] MEDS ORDERED: HYDROCORTISONE 1% CREAM 28.35 GM TUBE TP ONE (13:40)
== END 2021-10-29 23:59 | disposition home health service (06) ==
LOC: WOU 12:55
PROVIDERS: ATTEND Surgery
DX: T81.31XA Disruption of external operation (surgical) wound, not elsewhere classified, initial encounter (principal); Z96.653 Presence of artificial knee joint, bilateral
CPT/HCPCS: 11043

== ENCOUNTER 2021-11-05 09:55 | Outpatient (CLI) | payer MEDICARE, OTHER ==
[2021-11-05] MEDS ORDERED: HYDROCORTISONE 1% CREAM 28.35 GM TUBE TP ONE (10:24)
== END 2021-11-05 23:59 | disposition home health service (06) ==
LOC: WOU 09:55
PROVIDERS: ATTEND Podiatrist Foot & Ankle Surgery
DX: L97.312 Non-pressure chronic ulcer of right ankle with fat layer exposed (principal); T81.89XS Other complications of procedures, not elsewhere classified, sequela; Z96.653 Presence of artificial knee joint, bilateral; I10 Essential (primary) hypertension
CPT/HCPCS: 11042

== ENCOUNTER 2021-11-12 09:55 | Outpatient (CLI) | payer MEDICARE, OTHER ==
[2021-11-12] MEDS ORDERED: LIDOCAINE SOLN 4% 50 ML BOTTLE ONE (09:59)
[2021-11-12] MEDS ORDERED: HYDROCORTISONE 1% CREAM 28.35 GM TUBE TP ONE (10:36)
== END 2021-11-12 23:59 | disposition home health service (06) ==
LOC: WOU 09:55
PROVIDERS: ATTEND Podiatrist Foot & Ankle Surgery
DX: L97.312 Non-pressure chronic ulcer of right ankle with fat layer exposed (principal); T81.31XS Disruption of external operation (surgical) wound, not elsewhere classified, sequela; I10 Essential (primary) hypertension; Z96.653 Presence of artificial knee joint, bilateral
CPT/HCPCS: 11043

== ENCOUNTER 2021-11-19 10:00 | Outpatient (CLI) | payer MEDICARE, OTHER ==
[2021-11-19] MEDS ORDERED: LIDOCAINE SOLN 4% 50 ML BOTTLE ONE (10:17)
[2021-11-19] MEDS ORDERED: HYDROCORTISONE 1% CREAM 28.35 GM TUBE TP ONE (10:17)
== END 2021-11-19 23:59 | disposition home health service (06) ==
LOC: WOU 10:00
PROVIDERS: ATTEND Podiatrist Foot & Ankle Surgery
DX: T81.31XA Disruption of external operation (surgical) wound, not elsewhere classified, initial encounter (principal); Z96.653 Presence of artificial knee joint, bilateral; I10 Essential (primary) hypertension
CPT/HCPCS: 11042

== ENCOUNTER 2021-11-19 11:42 | Outpatient (CLI) | payer MEDICARE, OTHER ==
[2021-11-19 12:54] LABS: BASOPHILS % (AUTO) 0.5 % (0.0-2.0); EOSINOPHILS % (AUTO) 1.1 % (0.0-6.0); HEMATOCRIT 45 % (33-45); HEMOGLOBIN 14.8 g/dL (11.5-14.8); LYMPHOCYTES # (AUTO) 2.5 K/uL (0.8-4.8); MEAN CORPUSCULAR HGB CONC 33 g/dl (31.0-36.0); MEAN CORPUSCULAR VOLUME 85 fL (82-100); MONOCYTES # (AUTO) 0.6 K/uL (0.1-1.30); MONOCYTES % (AUTO) 7.9 % (2.0-12.0); NEUTROPHILS # (AUTO) 4.4 K/uL (1.8-8.9); NEUTROPHILS % (AUTO) 57.5 % (43.0-81.0); PLATELET COUNT (AUTO) 188 K/uL (150-450); RED BLOOD CELL COUNT(AUTO) 5.23 MIL/uL (4.0-5.2); WHITE BLOOD COUNT (AUTO) 7.7 K/uL (4.3-11.0)
[2021-11-19 13:05] LABS: CALCIUM, SERUM 9.2 mg/dL (8.5-10.1); CREATININE 0.7 mg/dL (0.6-1.3); POTASSIUM 3.9 mmol/L (3.5-5.1)
== END 2021-11-19 23:59 | disposition home or self-care (01) ==
LOC: LAB 11:42
PROVIDERS: ATTEND Surgery
DX: Z01.818 Encounter for other preprocedural examination (principal); Z01.812 Encounter for preprocedural laboratory examination; Z20.822 Contact with and (suspected) exposure to COVID-19; S91.011D Laceration without foreign body, right ankle, subsequent encounter; X58.XXXD Exposure to other specified factors, subsequent encounter; L03.115 Cellulitis of right lower limb
CPT/HCPCS: 71045; 85025; 80048; 85610; 85730; 36415; 86850; U0003; C9803

== ENCOUNTER 2021-11-24 10:30 | Outpatient (CLI) | payer MEDICARE, OTHER | END 2021-11-24 23:59 | disposition home or self-care (01) | LOC: MSC 10:30 | PROVIDERS: ATTEND Internal Medicine | DX: Z01.818 Encounter for other preprocedural examination (principal); L97.518 Non-pressure chronic ulcer of other part of right foot with other specified severity; M65.279 Calcific tendinitis, unspecified ankle and foot; I10 Essential (primary) hypertension; E66.9 Obesity, unspecified; G40.309 Generalized idiopathic epilepsy and epileptic syndromes, not intractable, without status epilepticus; K21.9 Gastro-esophageal reflux disease without esophagitis; F41.9 Anxiety disorder, unspecified; M15.9 Polyosteoarthritis, unspecified; M54.50 Low back pain, unspecified; K62.5 Hemorrhage of anus and rectum; E78.5 Hyperlipidemia, unspecified; E74.39 Other disorders of intestinal carbohydrate absorption; Z87.440 Personal history of urinary (tract) infections; M85.80 Other specified disorders of bone density and structure, unspecified site; Z79.899 Other long term (current) drug therapy ==

== ENCOUNTER 2021-11-26 09:35 | Day surgery (SDC) | payer MEDICARE, OTHER ==
--- NOTE | 2021-11-26 10:00 | NUR ---
ms rn received a 71 year old female, awake,alert,oriented x4,not in any form of distress, respirations even and unlabored,no sob noted,lungs are clear,abdomen soft,positive bowel sounds, denies pain at this time, came in for surgery of right ankle, patient is ready for surgery
--- NOTE | 2021-11-26 11:00 | NUR ---
ms rn patient ready for surgery.
[2021-11-26] MEDS ORDERED: FENTANYL PF 250MCG/5ML AMPUL ONE (11:03)
[2021-11-26] MEDS ORDERED: SUCCINYLCHOLINE CHLORIDE 20 MG/ML VIAL ONE (11:04)
[2021-11-26] MEDS ORDERED: MIDAZOLAM HCL 2 MG/2ML VIAL ONE (11:04)
[2021-11-26] MEDS ORDERED: FAMOTIDINE/PF INJ 20 MG/2 ML VIAL IV ONE (11:04)
[2021-11-26] MEDS ORDERED: BUPIVACAINE 0.5 % PF 150 MG/30 ML VIAL ONE (11:58)
[2021-11-26] MEDS ORDERED: LIDOCAINE 1%-EPI 1:100,000 20 ML VIAL ONE (11:58)
[2021-11-26] MEDS ORDERED: BUPIVACAINE 0.25% 75 MG/30 ML VIAL ONE (11:58)
[2021-11-26 14:00] VITALS: BP 110/60
[2021-11-26] MEDS ORDERED: HYDROCODONE/APAP 5/325MG TABLET PO PRN (14:00)
[2021-11-26] MEDS ORDERED: MORPHINE SULFATE INJ 2 MG/ML DISP.SYRIN IV PRN (14:00)
--- NOTE | 2021-11-26 14:00 | NUR ---
ms rn patient came back from surgery, awake,alert,orientedx4,no pain noted, sx site covered w/ dressing w/ partial immobilizer on,
[2021-11-26 14:15] VITALS: BP 109/58
[2021-11-26 14:30] VITALS: BP 112/60
[2021-11-26 14:45] VITALS: BP 109/58
[2021-11-26 15:00] VITALS: BP 113/61
--- NOTE | 2021-11-26 18:09 | NUR ---
ms workers compensation defense attorney instructions given and understood, told patient to call [facility] for pain meds.went home w/ no distress noted.
== END 2021-11-26 18:00 | disposition home or self-care (01) ==
LOC: DS 09:35 → MED 09:42 → UNDOADMIN 09:42 → DS 18:00 → UNDODISIN 19:30
PROVIDERS: ATTEND Surgery
DX: T81.89XA Other complications of procedures, not elsewhere classified, initial encounter (principal); L03.115 Cellulitis of right lower limb; X58.XXXA Exposure to other specified factors, initial encounter; Y93.89 Activity, other specified; Y92.89 Other specified places as the place of occurrence of the external cause; Y99.8 Other external cause status; I10 Essential (primary) hypertension; E66.3 Overweight; Z98.890 Other specified postprocedural states; Z79.899 Other long term (current) drug therapy
CPT/HCPCS: 13160; 86850; 36415; J0690; J2704; J3490 ×4; J2765; J0330 ×2; J2405; J7030; J2250; A4217; J3010; G0378

== ENCOUNTER 2021-11-27 13:26 | Outpatient (CLI) | payer MEDICARE, OTHER | END 2021-11-27 23:59 | disposition home or self-care (01) | LOC: WOU 13:26 | PROVIDERS: ATTEND Podiatrist Foot & Ankle Surgery | DX: T81.31XD Disruption of external operation (surgical) wound, not elsewhere classified, subsequent encounter (principal); I10 Essential (primary) hypertension; M89.9 Disorder of bone, unspecified; F41.9 Anxiety disorder, unspecified; Z79.899 Other long term (current) drug therapy; T86.821 Skin graft (allograft) (autograft) failure | CPT/HCPCS: 29515; G0463; A6253 ==

== ENCOUNTER → 2021-11-27 | Outpatient (CLI) | payer MEDICARE, OTHER | END | disposition home or self-care (01) | LOC: WOU 12:00 | PROVIDERS: ATTEND Surgery | DX: Z48.817 Encounter for surgical aftercare following surgery on the skin and subcutaneous tissue (principal); T81.31XD Disruption of external operation (surgical) wound, not elsewhere classified, subsequent encounter; I10 Essential (primary) hypertension; Z96.653 Presence of artificial knee joint, bilateral | CPT/HCPCS: G0463 ==

== ENCOUNTER 2021-12-03 10:00 | Outpatient (CLI) | payer MEDICARE, OTHER ==
[2021-12-03] MEDS ORDERED: LIDOCAINE SOLN 4% 50 ML BOTTLE ONE (10:18)
[2021-12-03] MEDS ORDERED: HYDROCORTISONE 1% CREAM 28.35 GM TUBE TP ONE (10:31)
== END 2021-12-03 23:59 | disposition home health service (06) ==
LOC: WOU 10:00
PROVIDERS: ATTEND Podiatrist Foot & Ankle Surgery
DX: Z01.818 Encounter for other preprocedural examination (principal); T86.821 Skin graft (allograft) (autograft) failure; T81.31XD Disruption of external operation (surgical) wound, not elsewhere classified, subsequent encounter; G40.89 Other seizures; M89.9 Disorder of bone, unspecified; I10 Essential (primary) hypertension
CPT/HCPCS: G0463 ×2

== ENCOUNTER 2021-12-10 10:00 | Outpatient (CLI) | payer MEDICARE, OTHER | END 2021-12-10 23:59 | disposition home health service (06) | LOC: WOU 10:00 | PROVIDERS: ATTEND Podiatrist Foot & Ankle Surgery | DX: T86.821 Skin graft (allograft) (autograft) failure (principal); T81.31XD Disruption of external operation (surgical) wound, not elsewhere classified, subsequent encounter; G40.89 Other seizures; Z79.899 Other long term (current) drug therapy; I10 Essential (primary) hypertension; F41.9 Anxiety disorder, unspecified; M89.9 Disorder of bone, unspecified | CPT/HCPCS: 11043 ==

== ENCOUNTER 2021-12-17 10:00 | Outpatient (CLI) | payer MEDICARE, OTHER ==
[2021-12-17] MEDS ORDERED: LIDOCAINE SOLN 4% 50 ML BOTTLE ONE (10:21)
== END 2021-12-17 23:59 | disposition home health service (06) ==
LOC: WOU 10:00
PROVIDERS: ATTEND Podiatrist Foot & Ankle Surgery
DX: T81.31XA Disruption of external operation (surgical) wound, not elsewhere classified, initial encounter (principal); T86.821 Skin graft (allograft) (autograft) failure; G40.89 Other seizures; I10 Essential (primary) hypertension; M89.9 Disorder of bone, unspecified
CPT/HCPCS: 11043

== ENCOUNTER 2021-12-24 10:45 | Outpatient (CLI) | payer MEDICARE, OTHER ==
[2021-12-24] MEDS ORDERED: LIDOCAINE SOLN 4% 50 ML BOTTLE ONE (10:55)
== END 2021-12-24 23:59 | disposition home health service (06) ==
LOC: WOU 10:45
PROVIDERS: ATTEND Podiatrist Foot & Ankle Surgery
DX: T81.31XA Disruption of external operation (surgical) wound, not elsewhere classified, initial encounter (principal); T86.821 Skin graft (allograft) (autograft) failure; G40.89 Other seizures; M89.9 Disorder of bone, unspecified; I10 Essential (primary) hypertension
CPT/HCPCS: 11042

== ENCOUNTER 2021-12-31 10:30 | Outpatient (CLI) | payer MEDICARE, OTHER ==
[2021-12-31] MEDS ORDERED: LIDOCAINE SOLN 4% 50 ML BOTTLE ONE (10:35)
== END 2021-12-31 23:59 | disposition home health service (06) ==
LOC: WOU 10:30
PROVIDERS: ATTEND Podiatrist Foot & Ankle Surgery
DX: T81.31XD Disruption of external operation (surgical) wound, not elsewhere classified, subsequent encounter (principal); T86.821 Skin graft (allograft) (autograft) failure; G40.89 Other seizures; I10 Essential (primary) hypertension; M89.9 Disorder of bone, unspecified
CPT/HCPCS: 11043

== ENCOUNTER 2022-01-07 10:05 | Outpatient (CLI) | payer MEDICARE, OTHER ==
[2022-01-07] MEDS ORDERED: HYDROCORTISONE 1% CREAM 28.35 GM TUBE TP ONE (10:52)
== END 2022-01-07 23:59 | disposition home health service (06) ==
LOC: WOU 10:05
PROVIDERS: ATTEND Podiatrist Foot & Ankle Surgery
DX: T81.31XA Disruption of external operation (surgical) wound, not elsewhere classified, initial encounter (principal); T86.821 Skin graft (allograft) (autograft) failure; G40.89 Other seizures; I10 Essential (primary) hypertension; M89.9 Disorder of bone, unspecified; Z96.653 Presence of artificial knee joint, bilateral
CPT/HCPCS: 11043

== ENCOUNTER 2022-01-14 10:04 | Outpatient (CLI) | payer MEDICARE, OTHER ==
[~2022-01-14 10:04] MED LIST changes: +LIDOCAINE SOLN 4% 50 ML BOTTLE ONE
[2022-01-14] MEDS ORDERED: HYDROCORTISONE 1% CREAM 28.35 GM TUBE TP ONE (10:06)
== END 2022-01-14 23:59 | disposition home health service (06) ==
LOC: WOU 10:04
PROVIDERS: ATTEND Surgery
DX: T81.31XA Disruption of external operation (surgical) wound, not elsewhere classified, initial encounter (principal); T86.821 Skin graft (allograft) (autograft) failure; G40.89 Other seizures; M89.9 Disorder of bone, unspecified
CPT/HCPCS: 11043

== ENCOUNTER 2022-01-21 09:40 | Outpatient (CLI) | payer MEDICARE, OTHER ==
[~2022-01-21 09:40] MED LIST changes: -LIDOCAINE SOLN 4% 50 ML BOTTLE ONE
[2022-01-21] MEDS ORDERED: LIDOCAINE SOLN 4% 50 ML BOTTLE ONE (09:57)
[2022-01-21] MEDS ORDERED: HYDROCORTISONE 1% CREAM 28.35 GM TUBE TP ONE (10:13)
== END 2022-01-21 23:59 | disposition home health service (06) ==
LOC: WOU 09:40
PROVIDERS: ATTEND Podiatrist Foot & Ankle Surgery
DX: T81.31XA Disruption of external operation (surgical) wound, not elsewhere classified, initial encounter (principal); T86.821 Skin graft (allograft) (autograft) failure; M89.9 Disorder of bone, unspecified; G40.89 Other seizures; I10 Essential (primary) hypertension
CPT/HCPCS: 11043

== ENCOUNTER 2022-01-28 10:05 | Outpatient (CLI) | payer MEDICARE, OTHER ==
[2022-01-28] MEDS ORDERED: LIDOCAINE SOLN 4% 50 ML BOTTLE ONE (10:10)
[2022-01-28] MEDS ORDERED: HYDROCORTISONE 1% CREAM 28.35 GM TUBE TP ONE (10:50)
== END 2022-01-28 23:59 | disposition home health service (06) ==
LOC: WOU 10:05
PROVIDERS: ATTEND Podiatrist Foot & Ankle Surgery
DX: T81.31XA Disruption of external operation (surgical) wound, not elsewhere classified, initial encounter (principal); T86.821 Skin graft (allograft) (autograft) failure; G40.89 Other seizures; M89.9 Disorder of bone, unspecified; I10 Essential (primary) hypertension
CPT/HCPCS: 11043

== ENCOUNTER 2022-02-04 10:25 | Outpatient (CLI) | payer MEDICARE, OTHER ==
[2022-02-04] MEDS ORDERED: LIDOCAINE SOLN 4% 50 ML BOTTLE ONE (10:57)
[2022-02-04] MEDS ORDERED: HYDROCORTISONE 1% CREAM 28.35 GM TUBE TP ONE (11:01)
== END 2022-02-04 23:59 | disposition home health service (06) ==
LOC: WOU 10:25
PROVIDERS: ATTEND Podiatrist Foot & Ankle Surgery
DX: T81.31XA Disruption of external operation (surgical) wound, not elsewhere classified, initial encounter (principal); T86.821 Skin graft (allograft) (autograft) failure; G40.89 Other seizures
CPT/HCPCS: 11043

== ENCOUNTER 2022-02-09 10:16 | Outpatient (CLI) | payer MEDICARE, OTHER | END 2022-02-09 23:59 | disposition home or self-care (01) | LOC: MSC 10:16 | PROVIDERS: ATTEND Internal Medicine | DX: Z51.89 Encounter for other specified aftercare (principal); M65.279 Calcific tendinitis, unspecified ankle and foot; I10 Essential (primary) hypertension; G40.309 Generalized idiopathic epilepsy and epileptic syndromes, not intractable, without status epilepticus; E66.9 Obesity, unspecified; Z71.3 Dietary counseling and surveillance; K21.9 Gastro-esophageal reflux disease without esophagitis; F41.9 Anxiety disorder, unspecified; M15.9 Polyosteoarthritis, unspecified; M54.50 Low back pain, unspecified; K62.5 Hemorrhage of anus and rectum; Z98.890 Other specified postprocedural states; Z86.010 Personal history of colon polyps; E78.5 Hyperlipidemia, unspecified; E74.39 Other disorders of intestinal carbohydrate absorption; Z87.440 Personal history of urinary (tract) infections; M85.80 Other specified disorders of bone density and structure, unspecified site ==

== ENCOUNTER 2022-02-18 10:09 | Outpatient (CLI) | payer MEDICARE, OTHER ==
[2022-02-18] MEDS ORDERED: LIDOCAINE SOLN 4% 50 ML BOTTLE ONE (10:32)
[2022-02-18] MEDS ORDERED: HYDROCORTISONE 1% CREAM 28.35 GM TUBE TP ONE (10:33)
== END 2022-02-18 23:59 | disposition home health service (06) ==
LOC: WOU 10:09
PROVIDERS: ATTEND Podiatrist Foot & Ankle Surgery
DX: T81.31XA Disruption of external operation (surgical) wound, not elsewhere classified, initial encounter (principal); T86.821 Skin graft (allograft) (autograft) failure; G40.89 Other seizures
CPT/HCPCS: 11043

== ENCOUNTER 2022-02-25 10:24 | Outpatient (CLI) | payer MEDICARE, OTHER ==
[~2022-02-25 10:24] MED LIST changes: +LIDOCAINE SOLN 4% 50 ML BOTTLE ONE
[2022-02-25] MEDS ORDERED: HYDROCORTISONE 1% CREAM 28.35 GM TUBE TP ONE (10:35)
== END 2022-02-25 23:59 | disposition home health service (06) ==
LOC: WOU 10:24
PROVIDERS: ATTEND Podiatrist Foot & Ankle Surgery
DX: T81.89XA Other complications of procedures, not elsewhere classified, initial encounter (principal); T86.821 Skin graft (allograft) (autograft) failure; G40.89 Other seizures; I10 Essential (primary) hypertension
CPT/HCPCS: 11043

== ENCOUNTER 2022-03-04 10:09 | Outpatient (CLI) | payer MEDICARE, OTHER ==
[~2022-03-04 10:09] MED LIST changes: -LIDOCAINE SOLN 4% 50 ML BOTTLE ONE
[2022-03-04] MEDS ORDERED: LIDOCAINE SOLN 4% 50 ML BOTTLE ONE (10:14)
[2022-03-04] MEDS ORDERED: HYDROCORTISONE 1% CREAM 28.35 GM TUBE TP ONE (10:16)
== END 2022-03-04 23:59 | disposition home health service (06) ==
LOC: WOU 10:09
PROVIDERS: ATTEND Podiatrist Foot & Ankle Surgery
DX: T81.31XA Disruption of external operation (surgical) wound, not elsewhere classified, initial encounter (principal); T86.821 Skin graft (allograft) (autograft) failure; G40.89 Other seizures
CPT/HCPCS: 11043

== ENCOUNTER 2022-03-18 09:55 | Outpatient (CLI) | payer MEDICARE, OTHER ==
[2022-03-18] MEDS ORDERED: HYDROCORTISONE 1% CREAM 28.35 GM TUBE TP ONE (10:39)
== END 2022-03-18 23:59 | disposition home health service (06) ==
LOC: WOU 09:55
PROVIDERS: ATTEND Podiatrist Foot & Ankle Surgery
DX: T81.89XA Other complications of procedures, not elsewhere classified, initial encounter (principal); T86.821 Skin graft (allograft) (autograft) failure; M89.9 Disorder of bone, unspecified; G40.89 Other seizures; I10 Essential (primary) hypertension
CPT/HCPCS: 11042

== ENCOUNTER 2022-03-25 10:12 | Outpatient (CLI) | payer MEDICARE, OTHER ==
[~2022-03-25 10:12] MED LIST changes: +LIDOCAINE SOLN 4% 50 ML BOTTLE ONE
== END 2022-03-25 23:59 | disposition home health service (06) ==
LOC: WOU 10:12
PROVIDERS: ATTEND Podiatrist Foot & Ankle Surgery
DX: T81.31XA Disruption of external operation (surgical) wound, not elsewhere classified, initial encounter (principal); T86.821 Skin graft (allograft) (autograft) failure; G40.89 Other seizures; M89.9 Disorder of bone, unspecified; I10 Essential (primary) hypertension
CPT/HCPCS: 11043

== ENCOUNTER 2022-03-25 11:00 | Outpatient (CLI) | payer MEDICARE, OTHER ==
[~2022-03-25 11:00] MED LIST changes: -LIDOCAINE SOLN 4% 50 ML BOTTLE ONE
[2022-03-25 11:46] LABS: BASOPHILS % (AUTO) 0.3 % (0.0-2.0); EOSINOPHILS % (AUTO) 1.1 % (0.0-6.0); HEMATOCRIT 42 % (33-45); LYMPHOCYTES % (AUTO) 32.4 % (20.0-44.0); MEAN CORPUSCULAR HGB CONC 33 g/dl (31.0-36.0); MEAN CORPUSCULAR VOLUME 86 fL (82-100); MONOCYTES # (AUTO) 0.8 K/uL (0.1-1.30); NEUTROPHILS # (AUTO) 5.3 K/uL (1.8-8.9); NEUTROPHILS % (AUTO) 57.2 % (43.0-81.0); PLATELET COUNT (AUTO) 205 K/uL (150-450); RED BLOOD CELL COUNT(AUTO) 4.92 MIL/uL (4.0-5.2); WHITE BLOOD COUNT (AUTO) 9.2 K/uL (4.3-11.0)
[2022-03-25 12:06] LABS: CALCIUM, SERUM 9.6 mg/dL (8.5-10.1); CARBON DIOXIDE 31 mmol/L (21-32); CHLORIDE 104 mmol/L (98-107); CREATININE 0.8 mg/dL (0.6-1.3); GLUCOSE 94 mg/dL (74-106); SODIUM SERUM 138 mmol/L (136-145); UREA NITROGEN, BLOOD 15 mg/dL (7-18)
== END 2022-03-25 23:59 | disposition home or self-care (01) ==
LOC: LAB 11:00
PROVIDERS: ATTEND Podiatrist Foot & Ankle Surgery
DX: Z01.818 Encounter for other preprocedural examination (principal); T86.821 Skin graft (allograft) (autograft) failure; T81.31XD Disruption of external operation (surgical) wound, not elsewhere classified, subsequent encounter
CPT/HCPCS: 36415; 71045-TC; 80048-TC; 85025-TC; 85730-TC

== ENCOUNTER 2022-03-29 09:00 | Outpatient (CLI) | payer MEDICARE, OTHER | END 2022-03-29 23:59 | disposition home or self-care (01) | LOC: LAB 09:00 | PROVIDERS: ATTEND Podiatrist Foot & Ankle Surgery | DX: Z01.812 Encounter for preprocedural laboratory examination (principal); Z20.822 Contact with and (suspected) exposure to COVID-19 | CPT/HCPCS: U0003; C9803 ==

== ENCOUNTER 2022-03-30 08:43 | Outpatient (CLI) | payer MEDICARE, OTHER | END 2022-03-30 23:59 | disposition home or self-care (01) | LOC: MSC 08:43 | PROVIDERS: ATTEND Internal Medicine | DX: Z01.818 Encounter for other preprocedural examination (principal); S91.301D Unspecified open wound, right foot, subsequent encounter; M65.279 Calcific tendinitis, unspecified ankle and foot; I10 Essential (primary) hypertension; E66.9 Obesity, unspecified; G40.309 Generalized idiopathic epilepsy and epileptic syndromes, not intractable, without status epilepticus; K21.9 Gastro-esophageal reflux disease without esophagitis; F41.9 Anxiety disorder, unspecified; M15.9 Polyosteoarthritis, unspecified; M54.50 Low back pain, unspecified; Z86.010 Personal history of colon polyps; Z98.890 Other specified postprocedural states; E78.5 Hyperlipidemia, unspecified; E74.39 Other disorders of intestinal carbohydrate absorption; Z87.440 Personal history of urinary (tract) infections; M85.80 Other specified disorders of bone density and structure, unspecified site ==

== ENCOUNTER 2022-04-01 06:16 | Day surgery (SDC) | payer MEDICARE, OTHER ==
[2022-04-01] MEDS ORDERED: LIDOCAINE 1% INJ 50 ML MDV IJ ONE (07:33)
[2022-04-01] MEDS ORDERED: BUPIVACAINE 0.5 % PF 150 MG/30 ML VIAL ONE (07:33)
[2022-04-01] MEDS ORDERED: HYDROMORPHONE INJ 2 MG/ML DISP.SYRIN ONE (08:33)
[2022-04-01] MEDS ORDERED: ROCURONIUM BROMIDE 50 MG/5 ML ONE (08:33)
== END 2022-04-01 11:20 | disposition home or self-care (01) ==
LOC: DS 06:16
PROVIDERS: ATTEND Podiatrist Foot & Ankle Surgery
DX: T81.31XS Disruption of external operation (surgical) wound, not elsewhere classified, sequela (principal); F32.9 Major depressive disorder, single episode, unspecified; E78.00 Pure hypercholesterolemia, unspecified; Z87.442 Personal history of urinary calculi; Z90.49 Acquired absence of other specified parts of digestive tract; Z98.890 Other specified postprocedural states; Z79.899 Other long term (current) drug therapy; E89.0 Postprocedural hypothyroidism; Y83.8 Other surgical procedures as the cause of abnormal reaction of the patient, or of later complication, without mention of misadventure at the time of the procedure; L90.5 Scar conditions and fibrosis of skin
CPT/HCPCS: 11043; 97605; J0690; J3490 ×4; J1100; J2704; J1170; J1885; J2405; J7030

== ENCOUNTER 2022-04-05 08:54 | Outpatient (CLI) | payer MEDICARE, OTHER ==
[2022-04-05] MEDS ORDERED: LIDOCAINE SOLN 4% 50 ML BOTTLE ONE (09:16)
== END 2022-04-05 23:59 | disposition home health service (06) ==
LOC: WOU 08:54
PROVIDERS: ATTEND Podiatrist Foot & Ankle Surgery
DX: T81.31XA Disruption of external operation (surgical) wound, not elsewhere classified, initial encounter (principal); T86.821 Skin graft (allograft) (autograft) failure; M89.9 Disorder of bone, unspecified; G40.89 Other seizures; I10 Essential (primary) hypertension; Z96.653 Presence of artificial knee joint, bilateral
CPT/HCPCS: 11042; 97605-TC

== ENCOUNTER 2022-04-06 10:17 | Outpatient (CLI) | payer MEDICARE, OTHER | END 2022-04-06 23:59 | disposition home or self-care (01) | LOC: MSC 10:17 | PROVIDERS: ATTEND Internal Medicine | DX: Z09 Encounter for follow-up examination after completed treatment for conditions other than malignant neoplasm (principal); S91.301D Unspecified open wound, right foot, subsequent encounter; F41.9 Anxiety disorder, unspecified; I10 Essential (primary) hypertension; E66.9 Obesity, unspecified; Z71.3 Dietary counseling and surveillance; G40.309 Generalized idiopathic epilepsy and epileptic syndromes, not intractable, without status epilepticus; K21.9 Gastro-esophageal reflux disease without esophagitis; M15.9 Polyosteoarthritis, unspecified; M54.50 Low back pain, unspecified; E78.5 Hyperlipidemia, unspecified; E74.39 Other disorders of intestinal carbohydrate absorption; Z87.440 Personal history of urinary (tract) infections; M85.80 Other specified disorders of bone density and structure, unspecified site ==

== ENCOUNTER 2022-04-08 09:30 | Outpatient (CLI) | payer MEDICARE, OTHER | END 2022-04-08 23:59 | disposition home health service (06) | LOC: WOU 09:30 | PROVIDERS: ATTEND Podiatrist Foot & Ankle Surgery | DX: T81.31XA Disruption of external operation (surgical) wound, not elsewhere classified, initial encounter (principal); T86.821 Skin graft (allograft) (autograft) failure; M89.9 Disorder of bone, unspecified; I10 Essential (primary) hypertension; G40.89 Other seizures; Z96.653 Presence of artificial knee joint, bilateral | CPT/HCPCS: 11042; 97605-TC ==

== ENCOUNTER → 2022-04-15 | Outpatient (CLI) | payer MEDICARE, OTHER ==
[~2022-04-15] MED LIST changes: +LIDOCAINE SOLN 4% 50 ML BOTTLE ONE
== END | disposition home or self-care (01) ==
LOC: WOU 09:56
PROVIDERS: ATTEND Podiatrist Foot & Ankle Surgery
DX: T81.31XA Disruption of external operation (surgical) wound, not elsewhere classified, initial encounter (principal); T86.821 Skin graft (allograft) (autograft) failure; G40.89 Other seizures; M89.9 Disorder of bone, unspecified; I10 Essential (primary) hypertension
CPT/HCPCS: 11043; 97605-TC

== ENCOUNTER 2022-04-22 10:23 | Outpatient (CLI) | payer MEDICARE, OTHER | END 2022-04-22 23:59 | disposition home health service (06) | LOC: WOU 10:23 | PROVIDERS: ATTEND Podiatrist Foot & Ankle Surgery | DX: T81.31XA Disruption of external operation (surgical) wound, not elsewhere classified, initial encounter (principal); T86.821 Skin graft (allograft) (autograft) failure; M89.9 Disorder of bone, unspecified; G40.89 Other seizures; I10 Essential (primary) hypertension | CPT/HCPCS: 11043; 97605-TC ==

== ENCOUNTER 2022-04-29 10:00 | Outpatient (CLI) | payer MEDICARE, OTHER ==
[~2022-04-29 10:00] MED LIST changes: -LIDOCAINE SOLN 4% 50 ML BOTTLE ONE
[2022-04-29] MEDS ORDERED: LIDOCAINE SOLN 4% 50 ML BOTTLE ONE (10:13)
[2022-04-29] MEDS ORDERED: DAKINS HALF STRENGTH (0.25%) 480 ML BOTTLE ONE (10:57)
== END 2022-04-29 23:59 | disposition home health service (06) ==
LOC: WOU 10:00
PROVIDERS: ATTEND Podiatrist Foot & Ankle Surgery
DX: T81.31XA Disruption of external operation (surgical) wound, not elsewhere classified, initial encounter (principal); T86.821 Skin graft (allograft) (autograft) failure; I10 Essential (primary) hypertension; M89.9 Disorder of bone, unspecified; G40.89 Other seizures; Z96.653 Presence of artificial knee joint, bilateral
CPT/HCPCS: 11043

== ENCOUNTER 2022-05-03 09:05 | Outpatient (CLI) | payer MEDICARE, OTHER ==
[~2022-05-03 09:05] MED LIST changes: +LIDOCAINE SOLN 4% 50 ML BOTTLE ONE
== END 2022-05-03 23:59 | disposition home health service (06) ==
LOC: WOU 09:05
PROVIDERS: ATTEND Podiatrist Foot & Ankle Surgery
DX: T81.31XA Disruption of external operation (surgical) wound, not elsewhere classified, initial encounter (principal); T86.821 Skin graft (allograft) (autograft) failure; M89.9 Disorder of bone, unspecified; G40.89 Other seizures; I10 Essential (primary) hypertension; Z96.653 Presence of artificial knee joint, bilateral
CPT/HCPCS: 11043; 97605-TC; G0463

== ENCOUNTER 2022-05-04 09:48 | Outpatient (CLI) | payer MEDICARE, OTHER ==
[~2022-05-04 09:48] MED LIST changes: -LIDOCAINE SOLN 4% 50 ML BOTTLE ONE
== END 2022-05-04 23:59 | disposition home or self-care (01) ==
LOC: MSC 09:48
PROVIDERS: ATTEND Internal Medicine
DX: S91.301D Unspecified open wound, right foot, subsequent encounter (principal); I10 Essential (primary) hypertension; E66.9 Obesity, unspecified; Z68.35 Body mass index [BMI] 35.0-35.9, adult; F41.9 Anxiety disorder, unspecified; G40.309 Generalized idiopathic epilepsy and epileptic syndromes, not intractable, without status epilepticus; K21.9 Gastro-esophageal reflux disease without esophagitis; M15.9 Polyosteoarthritis, unspecified; M54.50 Low back pain, unspecified; E78.5 Hyperlipidemia, unspecified; E74.39 Other disorders of intestinal carbohydrate absorption; Z87.440 Personal history of urinary (tract) infections; M85.80 Other specified disorders of bone density and structure, unspecified site

== ENCOUNTER 2022-05-06 10:09 | Outpatient (CLI) | payer MEDICARE, OTHER | END 2022-05-06 23:59 | disposition home health service (06) | LOC: WOU 10:09 | PROVIDERS: ATTEND Podiatrist Foot & Ankle Surgery | DX: T81.31XA Disruption of external operation (surgical) wound, not elsewhere classified, initial encounter (principal); T86.821 Skin graft (allograft) (autograft) failure; M89.9 Disorder of bone, unspecified; I10 Essential (primary) hypertension; G40.89 Other seizures | CPT/HCPCS: 11042; 97605-TC ==

== ENCOUNTER 2022-05-13 10:02 | Outpatient (CLI) | payer MEDICARE, OTHER ==
[~2022-05-13 10:02] MED LIST changes: +LIDOCAINE SOLN 4% 50 ML BOTTLE ONE
== END 2022-05-13 23:59 | disposition home health service (06) ==
LOC: WOU 10:02
PROVIDERS: ATTEND Podiatrist Foot & Ankle Surgery
DX: T81.31XD Disruption of external operation (surgical) wound, not elsewhere classified, subsequent encounter (principal); T86.821 Skin graft (allograft) (autograft) failure; M89.9 Disorder of bone, unspecified; G40.89 Other seizures; I10 Essential (primary) hypertension
CPT/HCPCS: 11043

== ENCOUNTER 2022-05-20 09:55 | Outpatient (CLI) | payer MEDICARE, OTHER ==
[~2022-05-20 09:55] MED LIST changes: -LIDOCAINE SOLN 4% 50 ML BOTTLE ONE
[2022-05-20] MEDS ORDERED: LIDOCAINE SOLN 4% 50 ML BOTTLE ONE (10:08)
== END 2022-05-20 23:59 | disposition home health service (06) ==
LOC: WOU 09:55
PROVIDERS: ATTEND Podiatrist Foot & Ankle Surgery
DX: T81.31XA Disruption of external operation (surgical) wound, not elsewhere classified, initial encounter (principal); L97.323 Non-pressure chronic ulcer of left ankle with necrosis of muscle; T86.821 Skin graft (allograft) (autograft) failure; G40.89 Other seizures; M89.9 Disorder of bone, unspecified; I10 Essential (primary) hypertension; Z96.653 Presence of artificial knee joint, bilateral
CPT/HCPCS: 11043

== ENCOUNTER 2022-05-27 09:49 | Outpatient (CLI) | payer MEDICARE, OTHER ==
[2022-05-27] MEDS ORDERED: DAKINS HALF STRENGTH (0.25%) 480 ML BOTTLE ONE (10:18)
== END 2022-05-27 23:59 | disposition home or self-care (01) ==
LOC: WOU 09:49
PROVIDERS: ATTEND Podiatrist Foot & Ankle Surgery
DX: T81.31XA Disruption of external operation (surgical) wound, not elsewhere classified, initial encounter (principal); T86.821 Skin graft (allograft) (autograft) failure; G40.89 Other seizures; M89.9 Disorder of bone, unspecified; I10 Essential (primary) hypertension
CPT/HCPCS: 11043

== ENCOUNTER 2022-06-03 11:17 | Outpatient (CLI) | payer MEDICARE, OTHER | END 2022-06-03 23:59 | disposition home health service (06) | LOC: WOU 11:17 | PROVIDERS: ATTEND Podiatrist Foot & Ankle Surgery | DX: T81.31XA Disruption of external operation (surgical) wound, not elsewhere classified, initial encounter (principal); L97.323 Non-pressure chronic ulcer of left ankle with necrosis of muscle; T86.821 Skin graft (allograft) (autograft) failure; G40.89 Other seizures; I10 Essential (primary) hypertension; M89.9 Disorder of bone, unspecified; Z96.653 Presence of artificial knee joint, bilateral | CPT/HCPCS: 11043 ==

== ENCOUNTER 2022-06-08 09:58 | Outpatient (CLI) | payer MEDICARE, OTHER | END 2022-06-08 23:59 | disposition home or self-care (01) | LOC: MSC 09:58 | PROVIDERS: ATTEND Internal Medicine | DX: E66.9 Obesity, unspecified (principal); Z68.33 Body mass index [BMI] 33.0-33.9, adult; Z71.3 Dietary counseling and surveillance; S91.301D Unspecified open wound, right foot, subsequent encounter; I10 Essential (primary) hypertension; F41.9 Anxiety disorder, unspecified; G40.309 Generalized idiopathic epilepsy and epileptic syndromes, not intractable, without status epilepticus; K21.9 Gastro-esophageal reflux disease without esophagitis; M15.9 Polyosteoarthritis, unspecified; M54.50 Low back pain, unspecified; E78.5 Hyperlipidemia, unspecified; E74.39 Other disorders of intestinal carbohydrate absorption; Z87.440 Personal history of urinary (tract) infections; M85.80 Other specified disorders of bone density and structure, unspecified site ==

== ENCOUNTER 2022-06-10 10:08 | Outpatient (CLI) | payer MEDICARE, OTHER ==
[~2022-06-10 10:08] MED LIST changes: +LIDOCAINE SOLN 4% 50 ML BOTTLE ONE
== END 2022-06-10 23:59 | disposition home health service (06) ==
LOC: WOU 10:08
PROVIDERS: ATTEND Podiatrist Foot & Ankle Surgery
DX: T81.31XA Disruption of external operation (surgical) wound, not elsewhere classified, initial encounter (principal); L97.323 Non-pressure chronic ulcer of left ankle with necrosis of muscle; T86.821 Skin graft (allograft) (autograft) failure; M89.9 Disorder of bone, unspecified; I10 Essential (primary) hypertension; G40.89 Other seizures; Z96.653 Presence of artificial knee joint, bilateral
CPT/HCPCS: 11043

== ENCOUNTER 2022-06-17 10:01 | Outpatient (CLI) | payer MEDICARE, OTHER ==
[~2022-06-17 10:01] MED LIST changes: -LIDOCAINE SOLN 4% 50 ML BOTTLE ONE
[2022-06-17] MEDS ORDERED: LIDOCAINE SOLN 4% 50 ML BOTTLE ONE (10:02)
== END 2022-06-17 23:59 | disposition home health service (06) ==
LOC: WOU 10:01
PROVIDERS: ATTEND Podiatrist Foot & Ankle Surgery
DX: T81.31XA Disruption of external operation (surgical) wound, not elsewhere classified, initial encounter (principal); L97.323 Non-pressure chronic ulcer of left ankle with necrosis of muscle; T86.821 Skin graft (allograft) (autograft) failure; G40.89 Other seizures; M89.9 Disorder of bone, unspecified
CPT/HCPCS: 11043

== ENCOUNTER 2022-06-24 08:08 | Outpatient (CLI) | payer MEDICARE, OTHER | END 2022-06-24 23:59 | disposition home health service (06) | LOC: WOU 08:08 | PROVIDERS: ATTEND Podiatrist Foot & Ankle Surgery | DX: T81.31XA Disruption of external operation (surgical) wound, not elsewhere classified, initial encounter (principal); L97.325 Non-pressure chronic ulcer of left ankle with muscle involvement without evidence of necrosis; T86.821 Skin graft (allograft) (autograft) failure; G40.89 Other seizures; M89.9 Disorder of bone, unspecified | CPT/HCPCS: 11043 ==

== ENCOUNTER 2022-06-24 08:17 | Outpatient (CLI) | payer MEDICARE, OTHER ==
[2022-06-24 09:00] LABS: BASOPHILS % (AUTO) 0.3 % (0.0-2.0); EOSINOPHILS % (AUTO) 1.3 % (0.0-6.0); HEMATOCRIT 43 % (33-45); HEMOGLOBIN 14.2 g/dL (11.5-14.8); LYMPHOCYTES % (AUTO) 31.9 % (20.0-44.0); MEAN CORPUSCULAR HGB CONC 33 g/dl (31.0-36.0); MEAN CORPUSCULAR VOLUME 87 fL (82-100); MONOCYTES # (AUTO) 0.5 K/uL (0.1-1.30); MONOCYTES % (AUTO) 8.2 % (2.0-12.0); NEUTROPHILS # (AUTO) 3.7 K/uL (1.8-8.9); NEUTROPHILS % (AUTO) 58.3 % (43.0-81.0); PLATELET COUNT (AUTO) 206 K/uL (150-450); RED BLOOD CELL COUNT(AUTO) 4.96 MIL/uL (4.0-5.2); WHITE BLOOD COUNT (AUTO) 6.3 K/uL (4.3-11.0)
[2022-06-24 09:20] LABS: CALCIUM, SERUM 9.6 mg/dL (8.5-10.1); CREATININE 0.7 mg/dL (0.6-1.3); POTASSIUM 3.4 mmol/L (3.5-5.1)
== END 2022-06-24 23:59 | disposition home or self-care (01) ==
LOC: LAB 08:17
PROVIDERS: ATTEND Podiatrist Foot & Ankle Surgery
DX: Z01.818 Encounter for other preprocedural examination (principal); L97.323 Non-pressure chronic ulcer of left ankle with necrosis of muscle; T86.828 Other complications of skin graft (allograft) (autograft); Y83.8 Other surgical procedures as the cause of abnormal reaction of the patient, or of later complication, without mention of misadventure at the time of the procedure; I70.0 Atherosclerosis of aorta
CPT/HCPCS: 36415; 71045-TC; 80048-TC; 85025-TC; 85610-TC; 85730-TC

== ENCOUNTER 2022-06-28 09:20 | Outpatient (CLI) | payer MEDICARE, OTHER | END 2022-06-28 23:59 | disposition home or self-care (01) | LOC: LAB 09:20 | PROVIDERS: ATTEND Podiatrist Foot & Ankle Surgery | DX: Z01.812 Encounter for preprocedural laboratory examination (principal); Z20.822 Contact with and (suspected) exposure to COVID-19 | CPT/HCPCS: U0003; C9803 ==

== ENCOUNTER 2022-06-29 08:50 | Outpatient (CLI) | payer MEDICARE, OTHER | END 2022-06-29 23:59 | disposition home or self-care (01) | LOC: MSC 08:50 | PROVIDERS: ATTEND Internal Medicine | DX: Z01.818 Encounter for other preprocedural examination (principal); S91.301D Unspecified open wound, right foot, subsequent encounter; E87.5 Hyperkalemia; E66.9 Obesity, unspecified; Z68.33 Body mass index [BMI] 33.0-33.9, adult; Z71.3 Dietary counseling and surveillance; I10 Essential (primary) hypertension; F41.9 Anxiety disorder, unspecified; G40.309 Generalized idiopathic epilepsy and epileptic syndromes, not intractable, without status epilepticus; K21.9 Gastro-esophageal reflux disease without esophagitis; M15.9 Polyosteoarthritis, unspecified; M54.50 Low back pain, unspecified; E78.5 Hyperlipidemia, unspecified; E74.39 Other disorders of intestinal carbohydrate absorption; Z87.440 Personal history of urinary (tract) infections; M85.80 Other specified disorders of bone density and structure, unspecified site ==

== ENCOUNTER 2022-07-01 05:58 | Day surgery (SDC) | payer MEDICARE, OTHER ==
[2022-07-01] MEDS ORDERED: FENTANYL PF 250MCG/5ML AMPUL ONE (06:43)
[2022-07-01] MEDS ORDERED: LIDOCAINE 1% INJ 50 ML MDV IJ ONE (07:47)
[2022-07-01] MEDS ORDERED: VANCOMYCIN 1 GM VIAL ONE (07:47)
[2022-07-01] MEDS ORDERED: BUPIVACAINE 0.25% 75 MG/30 ML VIAL ONE (07:47)
== END 2022-07-01 12:04 | disposition home or self-care (01) ==
LOC: DS 05:58
PROVIDERS: ATTEND Podiatrist Foot & Ankle Surgery
DX: L97.323 Non-pressure chronic ulcer of left ankle with necrosis of muscle (principal); I10 Essential (primary) hypertension; E78.5 Hyperlipidemia, unspecified; M19.90 Unspecified osteoarthritis, unspecified site; Z98.890 Other specified postprocedural states; Z79.899 Other long term (current) drug therapy
CPT/HCPCS: 13160; J0690; J2704; J3490 ×2; J2765; J0330; J2405; J7030; J3010; J3370

== ENCOUNTER 2022-07-08 10:00 | Outpatient (CLI) | payer MEDICARE, OTHER | END 2022-07-08 23:59 | disposition home health service (06) | LOC: WOU 10:00 | PROVIDERS: ATTEND Podiatrist Foot & Ankle Surgery | DX: T81.31XD Disruption of external operation (surgical) wound, not elsewhere classified, subsequent encounter (principal); G40.89 Other seizures; M89.9 Disorder of bone, unspecified; I10 Essential (primary) hypertension | CPT/HCPCS: G0463 ==

== ENCOUNTER 2022-07-13 10:00 | Outpatient (CLI) | payer MEDICARE, OTHER ==
[~2022-07-13 10:00] MED LIST changes: +MORPHINE SULFATE INJ 4 MG/ML DISP.SYRIN ONE
== END 2022-07-13 23:59 | disposition home or self-care (01) ==
LOC: MSC 10:00
PROVIDERS: ATTEND Internal Medicine
DX: Z09 Encounter for follow-up examination after completed treatment for conditions other than malignant neoplasm (principal); S91.301D Unspecified open wound, right foot, subsequent encounter; E87.6 Hypokalemia; E66.9 Obesity, unspecified; Z68.34 Body mass index [BMI] 34.0-34.9, adult; Z71.3 Dietary counseling and surveillance; Z79.85 Long-term (current) use of injectable non-insulin antidiabetic drugs; I10 Essential (primary) hypertension; F41.9 Anxiety disorder, unspecified; G40.309 Generalized idiopathic epilepsy and epileptic syndromes, not intractable, without status epilepticus; K21.9 Gastro-esophageal reflux disease without esophagitis; M15.9 Polyosteoarthritis, unspecified; M54.50 Low back pain, unspecified; E78.5 Hyperlipidemia, unspecified; E74.39 Other disorders of intestinal carbohydrate absorption; Z87.440 Personal history of urinary (tract) infections; M85.80 Other specified disorders of bone density and structure, unspecified site
CPT/HCPCS: J2270

== ENCOUNTER 2022-07-15 11:14 | Outpatient (CLI) | payer MEDICARE, OTHER ==
[~2022-07-15 11:14] MED LIST changes: -MORPHINE SULFATE INJ 4 MG/ML DISP.SYRIN ONE
== END 2022-07-15 23:59 | disposition home health service (06) ==
LOC: WOU 11:14
PROVIDERS: ATTEND Podiatrist Foot & Ankle Surgery
DX: T81.31XA Disruption of external operation (surgical) wound, not elsewhere classified, initial encounter (principal); L97.323 Non-pressure chronic ulcer of left ankle with necrosis of muscle; G40.89 Other seizures; M89.9 Disorder of bone, unspecified
CPT/HCPCS: 11043; A6209

== ENCOUNTER 2022-07-22 10:08 | Outpatient (CLI) | payer MEDICARE, OTHER | END 2022-07-22 23:59 | disposition home health service (06) | LOC: WOU 10:08 | PROVIDERS: ATTEND Podiatrist Foot & Ankle Surgery | DX: T81.31XA Disruption of external operation (surgical) wound, not elsewhere classified, initial encounter (principal); L97.325 Non-pressure chronic ulcer of left ankle with muscle involvement without evidence of necrosis; M89.9 Disorder of bone, unspecified; G40.89 Other seizures | CPT/HCPCS: 11043; A6209 ==

== ENCOUNTER 2022-07-29 12:05 | Outpatient (CLI) | payer MEDICARE, OTHER | END 2022-07-29 23:59 | disposition home health service (06) | LOC: WOU 12:05 | PROVIDERS: ATTEND Surgery | DX: T81.31XA Disruption of external operation (surgical) wound, not elsewhere classified, initial encounter (principal); L97.315 Non-pressure chronic ulcer of right ankle with muscle involvement without evidence of necrosis; M89.9 Disorder of bone, unspecified; G40.89 Other seizures | CPT/HCPCS: 11043; A6209 ==

== ENCOUNTER 2022-08-02 10:13 | Outpatient (CLI) | payer MEDICARE, OTHER | END 2022-08-02 23:59 | disposition home health service (06) | LOC: WOU 10:13 | PROVIDERS: ATTEND Podiatrist Foot & Ankle Surgery | DX: T81.31XD Disruption of external operation (surgical) wound, not elsewhere classified, subsequent encounter (principal); L97.325 Non-pressure chronic ulcer of left ankle with muscle involvement without evidence of necrosis; G40.89 Other seizures; M89.9 Disorder of bone, unspecified | CPT/HCPCS: 11043; A6209 ==

== ENCOUNTER 2022-08-05 10:21 | Outpatient (CLI) | payer MEDICARE, OTHER ==
[~2022-08-05 10:21] MED LIST changes: +LIDOCAINE 2% JEL 5 ML TUBE ONE
== END 2022-08-05 23:59 | disposition home health service (06) ==
LOC: WOU 10:21
PROVIDERS: ATTEND Podiatrist Foot & Ankle Surgery
DX: T81.31XA Disruption of external operation (surgical) wound, not elsewhere classified, initial encounter (principal); L97.325 Non-pressure chronic ulcer of left ankle with muscle involvement without evidence of necrosis; G40.89 Other seizures; M89.9 Disorder of bone, unspecified
CPT/HCPCS: 11042; A6209

== ENCOUNTER 2022-08-10 10:27 | Outpatient (CLI) | payer MEDICARE, OTHER ==
[~2022-08-10 10:27] MED LIST changes: -LIDOCAINE 2% JEL 5 ML TUBE ONE
== END 2022-08-10 23:59 | disposition home or self-care (01) ==
LOC: MSC 10:27
PROVIDERS: ATTEND Internal Medicine
DX: Z09 Encounter for follow-up examination after completed treatment for conditions other than malignant neoplasm (principal); S91.301D Unspecified open wound, right foot, subsequent encounter; E87.6 Hypokalemia; K64.4 Residual hemorrhoidal skin tags; E66.9 Obesity, unspecified; Z71.3 Dietary counseling and surveillance; Z79.85 Long-term (current) use of injectable non-insulin antidiabetic drugs; I10 Essential (primary) hypertension; F41.9 Anxiety disorder, unspecified; G40.309 Generalized idiopathic epilepsy and epileptic syndromes, not intractable, without status epilepticus; K21.9 Gastro-esophageal reflux disease without esophagitis; M15.9 Polyosteoarthritis, unspecified; E78.5 Hyperlipidemia, unspecified; E74.39 Other disorders of intestinal carbohydrate absorption; Z87.440 Personal history of urinary (tract) infections; M85.80 Other specified disorders of bone density and structure, unspecified site

== ENCOUNTER 2022-08-12 10:08 | Outpatient (CLI) | payer MEDICARE, OTHER | END 2022-08-12 23:59 | disposition home health service (06) | LOC: WOU 10:08 | PROVIDERS: ATTEND Podiatrist Foot & Ankle Surgery | DX: T81.31XA Disruption of external operation (surgical) wound, not elsewhere classified, initial encounter (principal); L97.322 Non-pressure chronic ulcer of left ankle with fat layer exposed; M89.9 Disorder of bone, unspecified; G40.89 Other seizures; I10 Essential (primary) hypertension | CPT/HCPCS: 11043; A6209 ==

== ENCOUNTER 2022-08-19 10:22 | Outpatient (CLI) | payer MEDICARE, OTHER | END 2022-08-19 23:59 | disposition home or self-care (01) | LOC: WOU 10:22 | PROVIDERS: ATTEND Podiatrist Foot & Ankle Surgery | DX: T81.31XA Disruption of external operation (surgical) wound, not elsewhere classified, initial encounter (principal); L97.322 Non-pressure chronic ulcer of left ankle with fat layer exposed; G40.89 Other seizures; M89.9 Disorder of bone, unspecified | CPT/HCPCS: 11043; 97605-TC ==

== ENCOUNTER 2022-08-26 10:46 | Outpatient (CLI) | payer MEDICARE, OTHER ==
[~2022-08-26 10:46] MED LIST changes: +LIDOCAINE SOLN 4% 50 ML BOTTLE ONE
== END 2022-08-26 23:59 | disposition home health service (06) ==
LOC: WOU 10:46
PROVIDERS: ATTEND Podiatrist Foot & Ankle Surgery
DX: T81.31XA Disruption of external operation (surgical) wound, not elsewhere classified, initial encounter (principal); L97.322 Non-pressure chronic ulcer of left ankle with fat layer exposed; M89.9 Disorder of bone, unspecified; G40.89 Other seizures
CPT/HCPCS: 11042

== ENCOUNTER → 2022-09-01 | Outpatient (CLI) | payer MEDICARE, OTHER ==
[~2022-09-01] MED LIST changes: -LIDOCAINE SOLN 4% 50 ML BOTTLE ONE
== END | disposition home or self-care (01) ==
LOC: WOU 09:43
PROVIDERS: ATTEND Specialist
DX: T86.828 Other complications of skin graft (allograft) (autograft) (principal); T81.31XD Disruption of external operation (surgical) wound, not elsewhere classified, subsequent encounter; L97.325 Non-pressure chronic ulcer of left ankle with muscle involvement without evidence of necrosis; G40.89 Other seizures
CPT/HCPCS: A4649; G0463

== ENCOUNTER 2022-09-02 10:00 | Outpatient (CLI) | payer MEDICARE, OTHER | END 2022-09-02 23:59 | disposition home health service (06) | LOC: WOU 10:00 | PROVIDERS: ATTEND Podiatrist Foot & Ankle Surgery | DX: T81.89XA Other complications of procedures, not elsewhere classified, initial encounter (principal); L97.322 Non-pressure chronic ulcer of left ankle with fat layer exposed; T86.828 Other complications of skin graft (allograft) (autograft); L89.613 Pressure ulcer of right heel, stage 3; G40.89 Other seizures; Z79.84 Long term (current) use of oral hypoglycemic drugs | CPT/HCPCS: 11042; A4649; A6209 ==

== ENCOUNTER 2022-09-09 10:30 | Outpatient (CLI) | payer MEDICARE, OTHER | END 2022-09-09 23:59 | disposition home health service (06) | LOC: WOU 10:30 | PROVIDERS: ATTEND Podiatrist Foot & Ankle Surgery | DX: T81.31XD Disruption of external operation (surgical) wound, not elsewhere classified, subsequent encounter (principal); L97.318 Non-pressure chronic ulcer of right ankle with other specified severity; T86.828 Other complications of skin graft (allograft) (autograft); L89.613 Pressure ulcer of right heel, stage 3; G40.89 Other seizures; M89.9 Disorder of bone, unspecified | CPT/HCPCS: G0463; A4649 ==

== ENCOUNTER 2022-09-16 08:08 | Outpatient (CLI) | payer MEDICARE, OTHER ==
[2022-09-16] MEDS ORDERED: LIDOCAINE 2% JEL 5 ML TUBE ONE (08:13)
== END 2022-09-16 23:59 | disposition home health service (06) ==
LOC: WOU 08:08
PROVIDERS: ATTEND Podiatrist Foot & Ankle Surgery
DX: T81.31XD Disruption of external operation (surgical) wound, not elsewhere classified, subsequent encounter (principal); L97.318 Non-pressure chronic ulcer of right ankle with other specified severity; T86.828 Other complications of skin graft (allograft) (autograft); G40.89 Other seizures
CPT/HCPCS: G0463; A4649

== ENCOUNTER 2022-09-23 08:56 | Outpatient (CLI) | payer MEDICARE, OTHER | END 2022-09-23 23:59 | disposition home or self-care (01) | LOC: MSC 08:56 | PROVIDERS: ATTEND Internal Medicine | DX: H92.01 Otalgia, right ear (principal); S91.301D Unspecified open wound, right foot, subsequent encounter; E87.6 Hypokalemia; K64.4 Residual hemorrhoidal skin tags; E66.9 Obesity, unspecified; Z71.3 Dietary counseling and surveillance; Z79.85 Long-term (current) use of injectable non-insulin antidiabetic drugs; I10 Essential (primary) hypertension; F41.9 Anxiety disorder, unspecified; G40.309 Generalized idiopathic epilepsy and epileptic syndromes, not intractable, without status epilepticus; K21.9 Gastro-esophageal reflux disease without esophagitis; M15.9 Polyosteoarthritis, unspecified; E78.5 Hyperlipidemia, unspecified; E74.39 Other disorders of intestinal carbohydrate absorption; Z87.440 Personal history of urinary (tract) infections; M85.80 Other specified disorders of bone density and structure, unspecified site ==

== ENCOUNTER 2022-09-30 09:01 | Outpatient (CLI) | payer MEDICARE, OTHER | END 2022-09-30 23:59 | disposition home health service (06) | LOC: WOU 09:01 | PROVIDERS: ATTEND Podiatrist Foot & Ankle Surgery | DX: T81.31XD Disruption of external operation (surgical) wound, not elsewhere classified, subsequent encounter (principal); L97.311 Non-pressure chronic ulcer of right ankle limited to breakdown of skin; T86.828 Other complications of skin graft (allograft) (autograft); G40.89 Other seizures; M89.9 Disorder of bone, unspecified; I10 Essential (primary) hypertension | CPT/HCPCS: G0463 ==

== ENCOUNTER 2022-12-16 14:30 | Outpatient (CLI) | payer MEDICARE, OTHER | END 2022-12-16 23:59 | disposition home or self-care (01) | LOC: MSC 14:30 | PROVIDERS: ATTEND Internal Medicine | DX: C43.1 Malignant melanoma of eyelid, including canthus (principal); Z98.890 Other specified postprocedural states; M79.671 Pain in right foot; M77.31 Calcaneal spur, right foot; R31.9 Hematuria, unspecified; R74.8 Abnormal levels of other serum enzymes; E78.1 Pure hyperglyceridemia; E55.9 Vitamin D deficiency, unspecified; E87.6 Hypokalemia; K64.4 Residual hemorrhoidal skin tags; E66.9 Obesity, unspecified; Z71.3 Dietary counseling and surveillance; Z79.85 Long-term (current) use of injectable non-insulin antidiabetic drugs; I10 Essential (primary) hypertension; F41.9 Anxiety disorder, unspecified; G40.309 Generalized idiopathic epilepsy and epileptic syndromes, not intractable, without status epilepticus; K21.9 Gastro-esophageal reflux disease without esophagitis; M15.9 Polyosteoarthritis, unspecified; E74.39 Other disorders of intestinal carbohydrate absorption; Z87.440 Personal history of urinary (tract) infections; M85.80 Other specified disorders of bone density and structure, unspecified site ==

== ENCOUNTER → 2022-12-23 | Outpatient (CLI) | payer MEDICARE, OTHER | END | disposition home or self-care (01) | LOC: MSC 15:00 | PROVIDERS: ATTEND Internal Medicine | DX: R74.8 Abnormal levels of other serum enzymes (principal); C43.1 Malignant melanoma of eyelid, including canthus; Z98.890 Other specified postprocedural states; R31.9 Hematuria, unspecified; E78.1 Pure hyperglyceridemia; E55.9 Vitamin D deficiency, unspecified; E87.6 Hypokalemia; E66.9 Obesity, unspecified; Z71.3 Dietary counseling and surveillance; Z79.85 Long-term (current) use of injectable non-insulin antidiabetic drugs; F41.9 Anxiety disorder, unspecified; I10 Essential (primary) hypertension; G40.309 Generalized idiopathic epilepsy and epileptic syndromes, not intractable, without status epilepticus; K21.9 Gastro-esophageal reflux disease without esophagitis; M15.9 Polyosteoarthritis, unspecified; E74.39 Other disorders of intestinal carbohydrate absorption; Z87.440 Personal history of urinary (tract) infections; M85.80 Other specified disorders of bone density and structure, unspecified site ==

== ENCOUNTER 2023-09-15 10:00 | Outpatient (CLI) | payer MEDICARE, OTHER | END 2023-09-15 23:59 | disposition home or self-care (01) | LOC: MSC 10:00 | PROVIDERS: ATTEND Internal Medicine | DX: E66.9 Obesity, unspecified (principal); Z68.35 Body mass index [BMI] 35.0-35.9, adult; S91.302D Unspecified open wound, left foot, subsequent encounter; I10 Essential (primary) hypertension; C43.59 Malignant melanoma of other part of trunk; C43.1 Malignant melanoma of eyelid, including canthus; K76.0 Fatty (change of) liver, not elsewhere classified; M85.80 Other specified disorders of bone density and structure, unspecified site; R92.323 Mammographic fibroglandular density, bilateral breasts; R74.8 Abnormal levels of other serum enzymes; R31.9 Hematuria, unspecified; M77.31 Calcaneal spur, right foot; E78.1 Pure hyperglyceridemia; E87.6 Hypokalemia; K21.9 Gastro-esophageal reflux disease without esophagitis; E78.5 Hyperlipidemia, unspecified; G40.309 Generalized idiopathic epilepsy and epileptic syndromes, not intractable, without status epilepticus; E74.39 Other disorders of intestinal carbohydrate absorption; Z87.440 Personal history of urinary (tract) infections ==